=== PATIENT | female | born 1960 | race Two or more races ===

== ENCOUNTER 2016-03-21 11:02 | Observation (INO) | payer SELFPAY ==
[2016-03-21] MEDS ORDERED: ASPIRIN 81 MG TABLET, CHEWABLE PO ONE (11:11)
[2016-03-21 12:02] LABS: HEMATOCRIT 33.3 % (36.0-47.0); HEMOGLOBIN 10.4 g/dL (12.0-15.5); HGB HCT DIFFERENCE -2.1; MEAN CORPUSCULAR HEMOGLOBIN 23.3 pg (27.0-33.4); MEAN CORPUSCULAR HGB CONC 31.3 g/dL (32.0-36.0); MEAN CORPUSCULAR VOLUME 74 fl (80-97); RED BLOOD COUNT 4.47 10^6/uL (3.72-5.28); WHITE BLOOD COUNT 17.2 10^3/uL (4.0-10.5)
[2016-03-21] MEDS ORDERED: PANTOPRAZOLE SODIUM 40 MG VIAL IV ONE (12:18)
[2016-03-21] MEDS ORDERED: NORMAL SALINE 1000 ML 1,000 ML IV ONE (12:19)
[2016-03-21 12:20] LABS: ALANINE AMINOTRANSFERASE 19 U/L (9-52); ALBUMIN 4.1 g/dL (3.5-5.0); ALKALINE PHOSPHATASE 131 U/L (38-126); ANION GAP 14 (5-19); ASPARTATE AMINO TRANSFERASE 20 U/L (14-36); BILIRUBIN,TOTAL 0.8 mg/dL (0.2-1.3); BLOOD UREA NITROGEN 12 mg/dL (7-20); CALCIUM 9.1 mg/dL (8.4-10.2); CARBON DIOXIDE 27 mmol/L (22-30); CHLORIDE 98 mmol/L (98-107); CREATINE KINASE 46 U/L (30-135); CREATININE RESULT 0.55 mg/dL (0.52-1.25); GLUCOSE 182 mg/dL (75-110); POTASSIUM 4.2 mmol/L (3.6-5.0); SODIUM 138.7 mmol/L (137-145); TOTAL PROTEIN 7.3 g/dL (6.3-8.2)
[2016-03-21 12:22] LABS: BASOPHILS % (MANUAL) 0 % (0-2); EOSINOPHILS % (MANUAL) 0 % (0-6); LYMPHOCYTES % (MANUAL) 7 % (13-45); TOTAL CELLS COUNTED 100
[2016-03-21 12:23] LABS: ANISOCYTOSIS 2+; HYPOCHROMASIA 1+; MICROCYTOSIS 1+; OVALOCYTES SLIGHT; POIKILOCYTOSIS 1+; POLYCHROMASIA SLIGHT; TEAR DROP CELLS SLIGHT
--- NOTE | 2016-03-21 12:28 | ER Document Report ---
ED General - General Chief Complaint: Chest Pain Stated Complaint: CHEST PAIN Mode of Arrival: Medic Information source: Patient, Relative Notes: This is a 55-year-old Italian-speaking female whose history is assisted by the son who is an government property inspector. The patient does understand some Vincentian and is able to provide some history herself. The patient began feeling poorly yesterday described as very nauseated and weak. She did not vomit yesterday. However she did feel poorly all day and told her son she felt like she was going to . Today when the son checked on her he found that she was very weak and that she had been vomiting green-appearing emesis, 4 episodes since 0 800 this morning. Patient also states that earlier today she had upper abdominal and mid chest discomfort. She denies any diarrhea but she did have a small bowel movement this morning which she described as black and tarry. She has no known prior history of GI bleeding. She does take aspirin twice a day. At the time of my exam she is denying any chest pain. Right now she states that she is feeling a little bit better. TRAVEL OUTSIDE OF THE [place] IN LAST 30 DAYS: No - Related Data Allergies/Adverse Reactions: No Known Allergies Allergy (Verified 04/10/15 12:31) Past Medical History - General Information source: Patient, Relative - Social History Smoking Status: Never Smoker Frequency of alcohol use: None Drug Abuse: None Family History: Reviewed & Not Pertinent - Past Medical History Cardiac Medical History: Reports: Hx Congestive Heart Failure, Hx Coronary Artery Disease, Hx Heart Attack, Hx Hypercholesterolemia, Hx Hypertension Pulmonary Medical History: Reports: Hx Asthma Endocrine Medical History: Reports: Hx Diabetes Mellitus Type 2 Past Surgical History: Reports: Hx Cardiac Catheterization, Hx Section , Hx Cholecystectomy, Hx Herniorrhaphy - Immunizations Hx Diphtheria, Pertussis, Tetanus Vaccination: Yes Review of Systems - Review of Systems Notes: REVIEW OF SYSTEMS: CONSTITUTIONAL : Denies fever, chills, or sweats. Generalized weakness and malaise as per history of present illness EENT: Denies eye, ear, throat, or mouth pain or symptoms. Denies nasal or sinus congestion. CARDIOVASCULAR: Chest pain as per history of present illness RESPIRATORY: Denies shortness of breath, difficulty breathing, or wheezing. Mild cough and congestion for 2 days. GASTROINTESTINAL: As per history of present illness GENITOURINARY: Denies difficulty urinating, painful urination, burning, frequency, or blood in urine. MUSCULOSKELETAL: Denies neck or back pain or joint pain or swelling. SKIN: Denies rash or skin lesions. HEMATOLOGIC : Denies easy bruising or bleeding. LYMPHATIC: Denies swollen, enlarged glands. NEUROLOGICAL: Denies altered mental status or loss of consciousness. Patient does have a mild headache today PSYCHIATRIC: Anxiety ALL OTHER SYSTEMS REVIEWED AND NEGATIVE. Physical Exam - Vital signs Vitals: Pulse Ox 97 03/21/16 11:48 - Notes Notes: PHYSICAL EXAMINATION: GENERAL: Obese female who is alert and conversant but somewhat ill-appearing and uncomfortable. HEAD: Atraumatic, normocephalic. EYES: Pupils equal round and reactive to light, extraocular movements intact, sclera anicteric, conjunctiva are normal. ENT: nares patent, oropharynx clear without exudates. Moist mucous membranes. NECK: Normal range of motion, supple without lymphadenopathy LUNGS: Breath sounds clear to auscultation bilaterally and equal. No wheezes rales or rhonchi. HEART: Regular rate and rhythm without murmurs ABDOMEN: Soft, obese, mild epigastric tenderness to palpation without rebound guarding or rigidity, normoactive bowel sounds. No masses appreciated. EXTREMITIES: Normal range of motion, no pitting or edema. No cyanosis. NEUROLOGICAL: Cranial nerves grossly intact. Normal speech. Normal sensory and motor exam PSYCH: Normal mood, anxious affect SKIN: Warm, Dry, some pallor, normal turgor, no rashes or lesions noted. Course - Re-evaluation Re-evalutation: 03/21/16 12:30 Lab review demonstrates a leukocytosis. Given this finding along with the upper abdominal pain and bilious vomiting, I will obtain a CT of abdomen and pelvis. 03/21/16 15:[address] reviewed. Patient was reexamined. She denies any recurrent chest pain. She is having diffuse abdominal cramping and nausea and has had one episode of vomiting since her CAT scan. She is still somewhat ill-appearing and uncomfortable. I have ordered IM Phenergan and will discuss with the hospitalist for admission. I discussed this with the patient and her son and their questions were answered and they are agreeable with plan. - Vital Signs Vital signs: Temp Pulse Resp BP Pulse Ox 98.2 F 97 20 110/55 L 99 03/21/16 22:40 03/21/16 22:40 03/21/16 22:40 03/21/16 22:40 03/21/16 22:40 - Laboratory Result Diagrams: 03/21/16 11:37 03/21/16 11:37 Laboratory results interpreted by me: 03/21/16 03/21/16 11:37 11:37 WBC 17.2 H Hgb 10.4 L Hct 33.3 L MCV 74 L MCH 23.3 L MCHC 31.3 L RDW 19.0 H Seg Neuts % (Manual) 91 H Lymphocytes % (Manual) 7 L Monocytes % (Manual) 2 L Abs Neuts (Manual) 15.7 H Glucose 182 H Alkaline Phosphatase 131 H - Diagnostic Test Radiology reviewed: Reports reviewed - Chest x-ray negative, CT of abdomen and pelvis negative for acute process. Discharge - Discharge Clinical Impression: Chest pain Qualifiers: Chest pain type: unspecified Qualified Code(s): R07.9 - Chest pain, unspecified Vomiting Qualifiers: Vomiting type: unspecified Vomiting Intractability: intractable Nausea presence : with nausea Qualified Code(s): R11.2 - Nausea with vomiting, unspecified Leukocytosis Qualifiers: Leukocytosis type: unspecified Qualified Code(s): D72.829 - Elevated white blood cell count, unspecified Hyperglycemia due to type 2 diabetes mellitus Qualifiers: Diabetes mellitus meterman insulin use: unspecified meterman insulin use status Qualified Code(s): E11.65 - Type 2 diabetes mellitus with hyperglycemia Condition: Stable Disposition: ADMITTED INPATIENT Admitting Provider: Hospitalist - Dr. Mac Unit Admitted: Medical Floor
[2016-03-21 12:50] LABS: CREATINE KINASE MB < 0.22 ng/mL (<4.55); TROPONIN I < 0.012 ng/mL
--- NOTE | 2016-03-21 13:27 | EKG REPORT ---
SEVERITY:- BORDERLINE ECG - SINUS RHYTHM BORDERLINE T ABNORMALITIES, ANTERIOR LEADS : Confirmed by: Bartolo Washington MD 21-Mar-2016 13:27:09
[2016-03-21] MEDS ORDERED: ONDANSETRON HCL INJ/PF 4 MG/2 ML SDV IV ONE (13:31)
[2016-03-21 13:58] LABS: APPEARANCE,URINE CLEAR; BILIRUBIN,URINE NEGATIVE (NEGATIVE); GLUCOSE, URINE NEGATIVE (NEGATIVE); KETONES,URINE NEGATIVE (NEGATIVE); LEUKOCYTE ESTERASE,URINE NEGATIVE (NEGATIVE); NITRITE,URINE NEGATIVE (NEGATIVE); PROTEIN,URINE NEGATIVE (NEGATIVE); URINE SPECIFIC GRAVITY 1.014; UROBILINOGEN,URINE NEGATIVE mg/dL (<2.0)
[2016-03-21] MEDS ORDERED: PROMETHAZINE HCL INJ 25 MG/1 ML VIAL IM ONE (15:43)
[2016-03-21] MEDS ORDERED: ONDANSETRON HCL INJ/PF 4 MG/2 ML SDV IV PRN (16:27)
[2016-03-21] MEDS ORDERED: ACETAMINOPHEN 325 MG TABLET PO PRN (16:27)
[2016-03-21] MEDS ORDERED: RINGERS SOLUTION,LACTATED 1,000 ML IV PRN (16:27)
[2016-03-21] MEDS ORDERED: MAGNESIUM HYDROXIDE SUSP 30 ML UDCUP PO PRN (16:27)
[2016-03-21] MEDS ORDERED: IPRATROPIUM/ALBUTEROL 0.5-2.5 MG/3 ML AMPUL NEB PRN (16:27)
[2016-03-21] MEDS ORDERED: DEXTROSE 50%-WATER 25 GM/50 ML DISP.SYRIN IV PRN ×2 (16:53)
[2016-03-21] MEDS ORDERED: INSULIN LISPRO 100 UNIT/ML 3 ML VIAL SUBCUT PRN (16:53)
[2016-03-21] MEDS ORDERED: GLUCAGON,HUMAN RECOMB 1 MG INJ IM PRN (16:53)
[2016-03-21] MEDS ORDERED: DEXTROSE 40% GEL 15 GM TUBE PO PRN ×2 (16:53)
--- NOTE | 2016-03-21 16:55 | PDOC H&P ---
History of Present Illness Admission Date/PCP: 03/21/16 16:23 Patient complains of: Chest pain History of Present Illness: ROEL MANCIA is a 55 year old female who presents from home with sudden onset of epigastric pain radiating into the left chest starting yesterday with associated nausea and vomiting of green bile. Pain is described as sharp and burning, constant but waxes and wanes with no alleviating or exacerbating factors. There was associated diaphoresis, dizziness, palpitations, subjective fevers and generalized weakness at the onset. She's never had anything like this before. She reports sick contact with her daughter who had high fevers at home on Sunday. She has not traveled outside the country. She denies diarrhea or constipation, orthopnea, PND, swelling of her lower extremities, rapid weight gain or loss, unilateral weakness, numbness and tingling, difficulty swallowing, dysuria, rash or swollen glands. She had previous gastric banding but the balloon has since been removed over a year ago and she was suffering complications of chronic pain and discomfort. Evaluation in the emergency department is largely unrevealing with normal evaluation so far. We were asked to admit the patient for further cardiac evaluation and management. She denies prior cardiac history however did undergo what sounds like a heart catheter many years ago that was reportedly normal. She does not smoke or drink , she is obese, her lipid status is unclear and there is a strong family history of heart disease. Past Medical History Cardiac Medical History: Reports: Congestive Heart Failure, Coronary Artery Disease, Myocardial Infarction, Hyperlipidema, Hypertension Pulmonary Medical History: Reports: Asthma Endocrine Medical History: Reports: Diabetes Mellitus Type 2 Past Surgical History Past Surgical History: Reports: Cardiac Catheterization, Section, Cholecystectomy, Herniorrhaphy Social History Smoking Status: Never Smoker Frequency of Alcohol Use: None Drugs: None Hx Prescription Drug Abuse: No - Advance Directive Resuscitation Status: Full Code Family History Family History: CAD Parental Family History Reviewed: Yes Children Family History Reviewed: Yes Sibling(s) Family History Reviewed.: Yes Medication/Allergy Home Medications: Atorvastatin Calcium [Lipitor 40 mg Tablet] 80 mg PO QHS 10/29/13 Enalapril Maleate [Vasotec] 20 mg PO DAILY 10/29/13 Hydrochlorothiazide 25 mg PO DAILY 10/29/13 Metformin HCl [Glucophage] 1,000 mg PO BID 10/29/13 Metoprolol Tartrate [Lopressor 50 mg Tablet] 25 mg PO BID 10/29/13 Aspirin [Ecotrin 325 mg EC Tablet] 81 mg PO DAILY #30 tabec 10/30/13 Acetaminophen [Tylenol 325 mg Tablet] 650 mg PO Q4HP PRN tablet 04/14/15 Albuterol Sulfate [Proair HFA Inhalation Aerosol 8.5 gm MDI] 2 puff IH Q6 #1 [id number].[id number] 04/14/15 Albuterol Sulfate [Ventolin HFA MDI 18 GM] 1 - 2 puff IH Q4H PRN #1 mdi Benzonatate [Tessalon Perles 100 mg Capsule] 100 mg PO Q8 #30 capsule 04/14/15 Docusate Sodium [Colace 100 mg Capsule] 100 mg PO BID #60 capsule 04/14/15 Furosemide [Lasix 20 mg Tablet] 20 mg PO DAILY #30 tablet 04/14/15 Montelukast Sodium [Singulair 10 mg Tablet] 10 mg PO QHS #30 tablet 04/14/15 Prednisone [Deltasone 20 mg Tablet] 40 mg PO DAILY #10 tablet 04/14/15 Sennosides [Senna Laxative] 8.6 mg PO QHS #30 tablet 04/14/15 Ciprofloxacin HCl [Cipro 500 mg Tablet] 500 mg PO BID #20 tablet 12/19/15 Hydrocodone/Acetaminophen [[place] 5-325 mg Tablet] 1 - 2 tab PO ASDIR #15 tablet 12/19/15 Metronidazole [Flagyl 500 mg Tablet] 500 mg PO TID #30 tablet 12/19/15 Allergies/Adverse Reactions: No Known Allergies Allergy (Verified 04/10/15 12:31) Review of Systems Constitutional: PRESENT: chills, fever(s). ABSENT: headache(s), weight gain, weight loss Eyes: ABSENT: visual disturbances Ears: ABSENT: hearing changes Cardiovascular: PRESENT: chest pain, palpitations. ABSENT: dyspnea on exertion , edema, orthropnea Respiratory: ABSENT: cough, hemoptysis Gastrointestinal: PRESENT: abdominal pain - Epigastric and left upper quadrant, nausea, vomiting. ABSENT: constipation, diarrhea, hematemesis, hematochezia Genitourinary: ABSENT: dysuria, hematuria Musculoskeletal: ABSENT: joint swelling Integumentary: ABSENT: rash, wounds Neurological: PRESENT: dizziness. ABSENT: abnormal gait, abnormal speech, confusion, focal weakness, syncope Psychiatric: PRESENT: anxiety - Very concerned she is having a heart attack, homidical ideation, suicidal ideation. ABSENT: depression Endocrine: ABSENT: cold intolerance, heat intolerance, polydipsia, polyuria Hematologic/Lymphatic: ABSENT: easy bleeding, easy bruising Physical Exam Vital Signs: Temp Pulse Resp BP Pulse Ox 26 H 155/72 H 94 03/21/16 16:01 03/21/16 16:01 03/21/16 16:01 PHYSICAL EXAM GENERAL: NAD; well developed, well nourished; morbid obese; alert and oriented to person, place, time, situation; German-speaking HEENT: normocephalic, atraumatic; EOMI, PERRLA, no conjunctival injection, no scleral icterus; oral mucosa moist, normal dentition; neck supple, no rigidity or tenderness; no LAD, normal ROM; tonsils mildly enlarged and erythematous but no exudates, posterior oropharynx mildly erythematous. RESPIRATORY: no accessory muscle use, no increased WOB, good air entry bilaterally; no wheezes, rales, rhonchi; no inspiratory crackles CARDIO: no JVD; RRR; no systolic murmur; no tachycardia; no tenderness to palpation of the chest wall VASCULAR: no carotid bruit; no abdominal bruit; no pallor; 2+ radial, DP pulse ; normal capillary refill GI: soft; nondistended; normal bowel sounds; no hepato spleno megaly; no rebound, rigidity, guarding; tender over the epigastrium and left upper quadrant palpation, mild : normal external genitalia; rectal deferred NEURO: normal patella reflexes; normal sensation; normal motor function; no dysarthria; no nystagmus; tongue protrudes midline; MSK: 5/5 strength; normal ROM hips; ambulatory without assistance; no tenderness EXTREMITIES: no calf tender; no palpable cords in calf; no clubbing, cyanosis , pedal edema PSYCH: normal affect, normal mood SKIN: warm; moist; no petechiae; no telengectasias; no jaundice; no rash Results Laboratory Results: Labs reviewed initial troponins are negative 2, lipase is normal, glucose is elevated at 182 but the remainder of her electrolytes are normal; her CBC does show leukocytosis of 17,000 mild anemia with an H&H of 10 and 33 platelet count of 342 and 91% segs EKG Comments: EKG shows a normal sinus rhythm with an S1 and Q3 with flattened T-wave in lead 3, not dissimilar to prior EKGs Impressions: Chest X-Ray 03/21/16 11:11 IMPRESSION: Cardiomegaly stable. Note above. Abdomen/Pelvis CT 03/21/16 12:29 IMPRESSION: 1. No acute or suspicious abdominopelvic abnormality. No evidence of bowel obstruction. Sigmoid diverticulosis without evidence of active diverticulitis. Status: Image reviewed by me - Images reviewed by me, I agree with radiology. Assessment & Plan - Diagnosis (1) Atypical chest pain Is this a current diagnosis for this admission?: YesPlan: Unclear etiology but I highly suspect GI source. She has never undergone endoscopy and so has no prior history of peptic ulcer disease, gastritis, esophagitis however she had a great deal of difficulty after the gastric balloon was implanted for reduction surgery and weight loss requiring subsequent removal. Nevertheless she has a HEART score equal to 4 and assuming she is afforded in the morning we'll schedule a Cardiolite stress test further evaluate. His artery had 2 negative cardiac enzymes will check a third and monitor overnight on telemetry for any cardiac dysrhythmias. We'll check a lipid panel in the morning. Hold on aspirin at this time as there is no clear indication of acute cardiac ischemia and I have great concerns regarding possible GI source with a differential diagnosis including gastric ulcer disease. We'll start empiric PPI therapy twice a day and allow clear liquid diet tonight with as needed antiemetics and analgesics. (2) Leukocytosis Qualifiers: Leukocytosis type: unspecified Qualified Code(s): D72.829 - Elevated white blood cell count, unspecified Is this a current diagnosis for this admission?: YesPlan: Unclear etiology. 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 - Time Time Spent: 50 to 70 Minutes Medications reviewed and adjusted accordingly: Yes Anticipated discharge: Home Within: within 24 hours - Plan Summary Plan Summary: IV fluids, analgesics, antiemetics through the night. Cardiac evaluation as outlined above. Hopefully nothing more than a viral gastroenteritis and she could be safely discharged home tomorrow.
[2016-03-21] MEDS ORDERED: ENOXAPARIN SODIUM INJ 40 MG/0.4 ML DISP.SYRIN SUBCUT ONE (17:30)
[2016-03-21] MEDS ORDERED: INFLUENZA ADLT QUAD (36MOS+) 2016-17 VAC 0.5 ML SYR IM PRN (18:59)
[2016-03-21 20:32] LABS: CREATINE KINASE MB < 0.22 ng/mL (<4.55); TROPONIN I < 0.012 ng/mL
[2016-03-21] MEDS: PANTOPRAZOLE SODIUM 40 MG VIAL IV SCH (23:24)
[2016-03-21] MEDS: MORPHINE SULFATE 10 MG/ML INJ IV PRN (23:24)
[2016-03-22 02:26] LABS: CREATINE KINASE MB < 0.22 ng/mL (<4.55); TROPONIN I < 0.012 ng/mL
[2016-03-22] MEDS: MORPHINE SULFATE 10 MG/ML INJ IV PRN (06:50)
[2016-03-22 07:41] LABS: HEMATOCRIT 28.9 % (36.0-47.0); HEMOGLOBIN 9.3 g/dL (12.0-15.5); MEAN CORPUSCULAR HEMOGLOBIN 23.9 pg (27.0-33.4); MEAN CORPUSCULAR HGB CONC 32.3 g/dL (32.0-36.0); MEAN CORPUSCULAR VOLUME 74 fl (80-97); RED BLOOD COUNT 3.89 10^6/uL (3.72-5.28); RED CELL DISTRIBUTION WIDTH 19.7 % (11.5-14.0); WHITE BLOOD COUNT 17.3 10^3/uL (4.0-10.5)
[2016-03-22] MEDS ORDERED: ENOXAPARIN SODIUM INJ 40 MG/0.4 ML DISP.SYRIN SUBCUT SCH (08:00)
[2016-03-22 08:06] LABS: CHOLESTEROL 118.33 mg/dL (0-200); CREATINE KINASE 152 U/L (30-135); Direct HDL 46 mg/dL (>40); MAGNESIUM 1.6 mg/dL (1.6-2.3); TRIGLYCERIDES 66 mg/dL (<150)
[2016-03-22 08:17] LABS: DIRECT LDL 58 mg/dL (<100)
[2016-03-22 08:19] LABS: CREATINE KINASE MB < 0.22 ng/mL (<4.55); TROPONIN I < 0.012 ng/mL
[2016-03-22] MEDS: PANTOPRAZOLE SODIUM 40 MG VIAL IV SCH (09:56)
[2016-03-22] MEDS ORDERED: BENZOCAINE/MENTHOL SORE THROAT LOZENGE BUCCAL PRN (11:23)
[2016-03-22] MEDS ORDERED: MAGNESIUM SULFATE/D5W 100 ML IV SCH (11:30)
[2016-03-22] MEDS ORDERED: REGADENOSON INJ 0.4 MG/5 ML DISP.SYRIN IV ONE (13:16)
[2016-03-22] MEDS ORDERED: HYDROMORPHONE HCL INJ/PF 2 MG/ML AMPULE IV PRN (14:27)
[2016-03-22] MEDS ORDERED: HYDROMORPHONE HCL INJ/PF 2 MG/ML AMPULE IV ONE (14:28)
[2016-03-22] MEDS ORDERED: MAGNESIUM SULFATE/D5W 1 GM/100 ML RTUPB IV ONE (15:15)
--- NOTE | 2016-03-22 15:49 | DRAGON STRESS TEST REPORT ---
INTRAVENOUS LEXISCAN CARDIOLITE STRESS TEST USING SINGLE PHOTON EMMISION COMPUTERIZED TOMOGRAPHIC. DATE OF PROCEDURE: March 22, 2016 INDICATION : Chest pain CARDIAC RISK FACTORS: Diabetes RESTING EKG: Sinus rhythm, no Baseline significant ST segment changes noted STRESS EKG: No significant changes noted with LexiScan bolus REASON FOR TERMINATION: Protocol. PROCEDURE REPORT: Baseline heart rate 96 beats per minute with blood pressure of 113/61. Patient had no significant complaints. Heart rate at 2 minutes post bolus 114 with a blood pressure of 121/57. 3 minutes post bolus heart rate 113 with blood pressure of 105/59. No significant EKG changes were noted. Patient had no significant complaints during the procedure or postprocedure. CONCLUSIONS: Normal EKG and hemodynamic response to IV LexiScan. NUCLEAR DATA: At rest the patient was given 15.96 millicuries of technetium 99 sestamibi injected intravenously. As per protocol rest gated SPECT images were obtained. Subsequently the patient was given intravenous LexiScan at a dose of 0.4 mg in 5 mL intravenously, followed by flush with normal saline. Subsequently the stress dose of 46.3 millicuries of technetium 99 sestamibi was injected intravenously. As per protocol stress gated images were obtained. NUCLEAR INTERPRETATION: Both raw and processed data were used for interpretation. Visual, qualitative, computer-generated quantitative data was used. There was good myocardial uptake of technetium compound. Motion artifact and soft tissue attenuations were noted. Increased visceral uptake was noted. No definitive areas of transient perfusion defect noted. No definitive areas of fixed perfusion defect or scars noted. EKG gated imaging showed LV EF at 58 %, rest and stress gated EF similar visually. T. I D. ratio was 0.93. Lung heart ratio noted to be within normal limits 0.35. No significant extracardiac and abnormal radiotracer activities were noted. RV free wall uptake was noted to be mildly increased. IMPRESSION: Also refer to comments under nuclear interpretation. Also test results needs to be interpreted in the context of pretest probability. 1. There is no definitive scintigraphic evidence of LexiScan induced myocardial ischemia. 2. There is no definitive scintigraphic evidence of myocardial infarction/scar. 3. EKG gated imaging shows left ejection fraction of approximately 58 %. 4. Clinical correlation requested as occasionally single vessel disease or balanced ischemia could be missed. In approximately 10% of the cases Lexiscan may not cause adequate vasodilatory stress. RECOMMENDATIONS: Aggressive risk factor modification, medical therapy. Clinical correlation with echocardiogram derived ejection fraction. Inability to exercise by itself can lead to increased cardiovascular event risks. Consider cardiology consultation if clinically indicated. I AM AVAILABLE FOR CARDIOLOGY CONSULTATION AND FOLLOWUP IF REQUESTED BY PMD Susan Mason M.D., [facility] [employer] Operator painting manager, Board certified in cardiovascular diseases, Nuclear cardiology, Echocardiography Cardiac CT and cardiac MRI Ph. [phone] [facility]
[2016-03-22] MEDS ORDERED: CEFTRIAXONE 2 GM/D5W RTU 2 GM/50 ML RTUPB IV SCH (16:00)
[2016-03-22] MEDS ORDERED: DEXAMETHASONE SOD PHOS INJ 10 MG/1 ML VIAL IV ONE (16:00)
[2016-03-22 17:42] VITALS: BP 110/55
--- NOTE | 2016-03-22 17:47 | PDOC DISCHARGE SUMMARY ---
General - Admit/Disc Date/PCP Admission Date/Primary Care Provider: 03/21/16 16:28 Discharge Date: 03/22/16 - Discharge Diagnosis (1) Atypical chest pain Is this a current diagnosis for this admission?: YesSummary: Admitted and monitored overnight on telemetry without evidence of cardiac dysrhythmia, serial cardiac enzymes were negative, Cardiolite stress test this morning was negative for any ischemic changes. This seems to be of GI origin and has now resolved according to the patient. (2) Streptococcal pharyngitis Is this a current diagnosis for this admission?: YesSummary: Likely the source of the vast majority of her ills. She was given a dose of Rocephin 2 g, Decadron 20 mg IV and we'll continue Amoxil 3 times a day for 10 days at home with follow up at the urgent care for choices she has no primary care provider. She is to return to the emergency department for any worsening of her condition including inability to control her secretions, drooling, high fevers greater than 102, worsening pain, lethargy or confusion. (3) Leukocytosis Is this a current diagnosis for this admission?: YesSummary: Likely secondary to the above. (4) Diabetes Is this a current diagnosis for this admission?: YesSummary: Hemoglobin A1c is 7.3. Given her obesity started her on metformin and she is to follow-up with primary care provider of her choice, currently seen at the [facility] in [place]. - Additional Information Resuscitation Status: Full Code Discharge Diet: As Tolerated Discharge Activity: Activity As Tolerated Home Medications: Acetaminophen [Tylenol 325 mg Tablet] 650 mg PO Q4HP PRN tablet 03/22/16 Amoxicillin Trihydrate [Amoxil 250 mg/5 ml Susp] 500 mg PO TID 10 Days 03/22/16 Atorvastatin Calcium [Lipitor 80 mg Tablet] 80 mg PO QHS 03/22/16 Benzocaine/Menthol [Chloraseptic Sore Throat Lozenge] 1 each BUCCAL Q2HP PRN lozenge 03/22/16 Hydrochlorothiazide [Hydrodiuril 25 mg Tablet] 25 mg PO DAILY 03/22/16 Linaclotide [Linzess] 290 mcg PO QAM 03/22/16 Metformin HCl 500 mg PO BID #60 tablet 03/22/16 Metformin HCl [Glucophage] 1,000 mg PO BIDACLS 03/22/16 Metoprolol Tartrate [Lopressor 25 mg Tablet] 25 mg PO Q12 03/22/16 Montelukast Sodium [Singulair 10 mg Tablet] 10 mg PO QHS 03/22/16 Morphine Sulfate [Roxanol] 10 mg PO Q4HP PRN #20 ml 03/22/16 History of Present Illness Patient complains of: Sore throat, epigastric pain, chest pain History of Present Illness: ROEL MANCIA is a 55 year old female who presents from home with sudden onset of epigastric pain radiating into the left chest starting yesterday with associated nausea and vomiting of green bile. Pain is described as sharp and burning, constant but waxes and wanes with no alleviating or exacerbating factors. There was associated diaphoresis, dizziness, palpitations, subjective fevers and generalized weakness at the onset. She's never had anything like this before. She reports sick contact with her daughter who had high fevers at home on Sunday. She has not traveled outside the country. She denies diarrhea or constipation, orthopnea, PND, swelling of her lower extremities, rapid weight gain or loss, unilateral weakness, numbness and tingling, difficulty swallowing, dysuria, rash or swollen glands. She had previous gastric banding but the balloon has since been removed over a year ago and she was suffering complications of chronic pain and discomfort. Evaluation in the emergency department is largely unrevealing with normal evaluation so far. We were asked to admit the patient for further cardiac evaluation and management. She denies prior cardiac history however did undergo what sounds like a heart catheter many years ago that was reportedly normal. She does not smoke or drink , she is obese, her lipid status is unclear and there is a strong family history of heart disease. Hospital Course Hospital Course: She was admitted to the hospital and ruled out for acute coronary ischemia with negative cardiac enzymes and a negative Cardiolite stress test. Her chest pain and epigastric pain resolved overnight with simple IV fluids. By morning she was complaining of intense swollen sore throat and odynophagia and on exam had worsening peritonsillar erythema with now developing tonsillar exudates. Rapid strep screen was positive confirming a diagnosis of strep pharyngitis. She was given a dose of Rocephin and Decadron and discharged home on oral amoxicillin with instructions to follow-up with primary care provider of her choice within one week or return to the emergency department for any worsening of her condition immediately. Case was discussed with her directly using Cl, all questions were asked and answered to her satisfaction, she is anxious for discharge home and expresses no concerns about doing so. She understands and is in agreement with the treatment plan as outlined above. Physical Exam Vital Signs: Temp Pulse Resp BP Pulse Ox 100.0 F 97 16 111/55 L 98 03/22/16 16:06 03/22/16 16:06 03/22/16 16:06 03/22/16 16:06 03/22/16 16:06 Intake & Output 03/21/16 03/22/16 03/23/16 06:59 06:59 06:59 Intake Total 950 Balance 950 Weight 119.9 kg PHYSICAL EXAM GENERAL: NAD; well developed, well nourished; morbid obese; alert and oriented to person, place, time, situation; Slovenian-speaking HEENT: normocephalic, atraumatic; EOMI, PERRLA, no conjunctival injection, no scleral icterus; oral mucosa moist,; neck supple, no rigidity but strap muscle tenderness under the angle of the jaw bilaterally with mild, tender, mobile LAD in that same area. Normal ROM; tonsils mildly enlarged and erythematous and today with exudates right greater than left, posterior oropharynx worsened erythema. RESPIRATORY: no accessory muscle use, no increased WOB, good air entry bilaterally; no wheezes, rales, rhonchi; no inspiratory crackles CARDIO: no JVD; RRR; no systolic murmur; no tachycardia; no tenderness to palpation of the chest wall VASCULAR: no carotid bruit; no abdominal bruit; no pallor; 2+ radial, DP pulse ; normal capillary refill GI: soft; nondistended; normal bowel sounds; no hepato spleno megaly; no rebound, rigidity, guarding; no longer tender over the epigastrium and left upper quadrant palpation EXTREMITIES: no calf tender; no palpable cords in calf; no clubbing, cyanosis , pedal edema PSYCH: normal affect, normal mood SKIN: warm; moist; no petechiae; no telengectasias; no jaundice; no rash Results Laboratory Results: 03/22/16 07:16 03/22/16 03/22/16 03/22/16 07:16 07:16 07:16 WBC 17.3 H RBC 3.89 Hgb 9.3 L Hct 28.9 L MCV 74 L MCH 23.9 L MCHC 32.3 RDW 19.7 H Plt Count 307 Magnesium 1.6 Triglycerides 66 Cholesterol 118.33 LDL Cholesterol Direct 58 VLDL Cholesterol 13.0 HDL Cholesterol 46 TSH 1.41 03/21/16 03/21/16 03/22/16 19:35 19:35 01:25 Creatine Kinase 78 115 CK-MB (CK-2) < 0.22 Troponin I < 0.012 03/22/16 03/22/16 03/22/16 01:25 07:16 07:16 Creatine Kinase 152 H CK-MB (CK-2) < 0.22 < 0.22 Troponin I < 0.012 < 0.012 Labs reviewed, summarized in history of present illness. Impressions: Chest X-Ray 03/21/16 11:11 IMPRESSION: Cardiomegaly stable. Note above. Abdomen/Pelvis CT 03/21/16 12:29 IMPRESSION: 1. No acute or suspicious abdominopelvic abnormality. No evidence of bowel obstruction. Sigmoid diverticulosis without evidence of active diverticulitis. Status: Imported from PACS - Reports reviewed Qualifiers PATEINT BEING DISCHARGED WITH ANY OF THE FOLLOWING DIAGNOSIS?: No VTE patient discharged on overlapping Therapy?: Yes Plan Discharge Plan: Discharged home on continued oral antibiotics and analgesics with close outpatient follow-up with provider of her choice and return to the emergency department for any worsening of her condition. Time Spent: Greater than 30 Minutes
== END 2016-03-22 18:25 | disposition home or self-care (01) ==
LOC: ER 11:02 → EH 16:23 → UNDOADMIN 16:23 → EH 16:28 → INTOOBSV 16:28 → EH 17:07 → 5 22:42
PROVIDERS: ADMIT Internal Medicine; ATTEND Internal Medicine
DX: J02.0 Streptococcal pharyngitis (principal); R07.89 Other chest pain; D72.829 Elevated white blood cell count, unspecified; E11.9 Type 2 diabetes mellitus without complications; E66.9 Obesity, unspecified; Z68.42 Body mass index [BMI] 45.0-49.9, adult; Z79.899 Other long term (current) drug therapy; Z79.84 Long term (current) use of oral hypoglycemic drugs; R10.13 Epigastric pain; R11.2 Nausea with vomiting, unspecified; I51.7 Cardiomegaly; K57.30 Diverticulosis of large intestine without perforation or abscess without bleeding; I50.9 Heart failure, unspecified; I25.10 Atherosclerotic heart disease of native coronary artery without angina pectoris; I25.2 Old myocardial infarction; E78.5 Hyperlipidemia, unspecified; I10 Essential (primary) hypertension; J45.909 Unspecified asthma, uncomplicated; Z98.61 Coronary angioplasty status; Z79.82 Long term (current) use of aspirin; Z79.51 Long term (current) use of inhaled steroids
CPT/HCPCS: 93005; 99285; 96361; 96374; 96375; 36415 ×2; 82553 ×2; 87880; 82962 ×2; 82550 ×2; 83690; 83735; 84443; 85025; 85027; 82272; 80053; 81001; 84484 ×2; 83036; 85379; 80061; 93017; 71010; 78452; 74177; 90686; 93010; 90471; G0378 ×3; A9500; J2785; J1815; J2270 ×2; J1650 ×2; J1170; J3475; S0164 ×2; J2550; J2405; J7030; J7120; J1100; J0696; Q9969

== ENCOUNTER 2017-02-23 19:30 | Inpatient (IN) | payer SELFPAY ==
--- NOTE | 2017-02-23 20:15 | RADIOLOGY REPORT (SQ) ---
EXAM DESCRIPTION: CHEST PA/LAT COMPLETED DATE/TIME: 02/23/2017 8:03 pm REASON FOR STUDY: cp cough COMPARISON: 04/14/2015 NUMBER OF VIEWS: Two views. TECHNIQUE: Frontal and lateral radiographic views of the chest acquired. LIMITATIONS: None. FINDINGS: LUNGS AND PLEURA: No opacities, masses or pneumothorax. No pleural effusion. MEDIASTINUM AND HILAR STRUCTURES: No masses or contour abnormality. HEART AND VASCULAR STRUCTURES: Cardiac enlargement. Vascular congestion. BONES: No acute findings. HARDWARE: None in the chest. OTHER: No other significant finding. IMPRESSION: CARDIAC ENLARGEMENT. VASCULAR CONGESTION. TECHNICAL DOCUMENTATION: JOB ID: [id number] [employer]- All Rights Reserved
[2017-02-23] MEDS ORDERED: PREDNISONE 20 MG TABLET PO ONE (20:52)
[2017-02-23] MEDS ORDERED: IPRATROPIUM/ALBUTEROL 0.5-2.5 MG/3 ML AMPUL NEB ONE (20:52)
[2017-02-23] MEDS ORDERED: AZITHROMYCIN 250 MG TABLET PO ONE (20:57)
--- NOTE | 2017-02-23 20:57 | ER Document Report ---
ED Medical Screen (RME) - General Chief Complaint: Shortness Of Breath Stated Complaint: BREATHING DIFFICULTY Time Seen by Provider: 02/23/17 20:43 Notes: 56-year-old female past medical history asthma here with complaints of progressively worsening wheezing cough shortness of breath and chest tightness ongoing for the past 2 months. She states that the chest tightness is worse with coughing but not with exertion. She's tried albuterol inhaler with good relief. EXAM Moderately tachycardic, regular rhythm Diminished aeration however no appreciable wheezes Mild tachypnea TRAVEL OUTSIDE OF THE [place] IN LAST 30 DAYS: No - Related Data Allergies/Adverse Reactions: No Known Allergies Allergy (Verified 02/23/17 19:33) Past Medical History - Social History Chew tobacco use (# tins/day): No Frequency of alcohol use: None Drug Abuse: None - Past Medical History Cardiac Medical History: Reports: Hx Congestive Heart Failure, Hx Coronary Artery Disease, Hx Heart Attack, Hx Hypercholesterolemia, Hx Hypertension Pulmonary Medical History: Reports: Hx Asthma Endocrine Medical History: Reports: Hx Diabetes Mellitus Type 2 Renal/ Medical History: Denies: Hx Peritoneal Dialysis Psychiatric Medical History: Reports: Hx Depression Past Surgical History: Reports: Hx Cardiac Catheterization, Hx Section , Hx Cholecystectomy, Hx Herniorrhaphy - Immunizations Hx Diphtheria, Pertussis, Tetanus Vaccination: Yes Physical Exam - Vital signs Vitals: Temp Pulse BP Pulse Ox 98.5 F 117 H 156/89 H 91 L 02/23/17 20:29 02/23/17 20:29 02/23/17 20:29 02/23/17 20:29 Course - Vital Signs Vital signs: Temp Pulse Resp BP Pulse Ox 98.5 F 117 H 156/89 H 91 L 02/23/17 20:29 02/23/17 20:29 02/23/17 20:29 02/23/17 20:29
[2017-02-23 21:27] LABS: ABSOLUTE EOSINOPHILS # (AUTO) 0.2 10^3/uL (0.0-0.6); ABSOLUTE LYMPHOCYTES (AUTO) 1.8 10^3/uL (0.5-4.7); ABSOLUTE MONOCYTES (AUTO) 0.6 10^3/uL (0.1-1.4); ABSOLUTE NEUT (AUTO) 13.5 10^3/uL (1.7-8.2); BASOPHILS % (AUTO) 0.3 % (0-2); HEMOGLOBIN 11.2 g/dL (12.0-15.5); LYMPHOCYTES % (AUTO) 11.3 % (13-45); MEAN CORPUSCULAR HEMOGLOBIN 22.3 pg (27.0-33.4); MEAN CORPUSCULAR HGB CONC 30.3 g/dL (32.0-36.0); MEAN CORPUSCULAR VOLUME 74 fl (80-97); MONOCYTES % (AUTO) 3.6 % (3-13); PLATELET COUNT 492 10^3/uL (150-450); RED BLOOD COUNT 5.03 10^6/uL (3.72-5.28); RED CELL DISTRIBUTION WIDTH 18.9 % (11.5-14.0); SEGMENTED NEUTROPHILS % (AUTO) 83.8 % (42-78); TOTAL CELLS COUNTED % (AUTO) 100 %; WHITE BLOOD COUNT 16.1 10^3/uL (4.0-10.5)
[2017-02-23 21:45] LABS: ANION GAP 10 (5-19); BLOOD UREA NITROGEN 10 mg/dL (7-20); CALCIUM 9.7 mg/dL (8.4-10.2); CARBON DIOXIDE 30 mmol/L (22-30); CHLORIDE 98 mmol/L (98-107); GLUCOSE 353 mg/dL (75-110); MAGNESIUM 1.5 mg/dL (1.6-2.3); POTASSIUM 4.7 mmol/L (3.6-5.0); SODIUM 138.4 mmol/L (137-145)
[2017-02-23] MEDS ORDERED: FUROSEMIDE INJ/PF 40 MG/4 ML SDV IV ONE (22:30)
--- NOTE | 2017-02-23 22:32 | ER Document Report ---
ED General - General Chief Complaint: Shortness Of Breath Stated Complaint: BREATHING DIFFICULTY Time Seen by Provider: 02/23/17 20:43 Notes: Patient is a 56-year-old female comes in with complaint of difficulty breathing. She does have a history of asthma. Has been short of breath for last couple days. Family is at bedside and said they would like to help with translating. Therefore used the family for translating as the patient's [place]ian is very limited. Patient has a history of asthma. She has been using her inhaler. She says sometimes it does help some but she still feeling some shortness of breath. No fevers. No infections. She denies history of IA but describes what sounds to be a heart catheterization she has had in the past. She denies having any stents. She denies history of fluid on her lungs. She says her shortness of breath is worse with exertion. She did have recent nuclear stress test in August according to records which was negative. She has had some left-sided chest pain and she does have some cramping in her upper abdomen whenever she starts breathing hard. No other complaints at this time. TRAVEL OUTSIDE OF THE [place] IN LAST 30 DAYS: No - Related Data Allergies/Adverse Reactions: No Known Allergies Allergy (Verified 02/23/17 19:33) Past Medical History - Social History Smoking Status: Never Smoker Chew tobacco use (# tins/day): No Frequency of alcohol use: None Drug Abuse: None Family History: Reviewed & Not Pertinent Patient has suicidal ideation: No Patient has homicidal ideation: No - Past Medical History Cardiac Medical History: Reports: Hx Congestive Heart Failure, Hx Coronary Artery Disease, Hx Heart Attack, Hx Hypercholesterolemia, Hx Hypertension Pulmonary Medical History: Reports: Hx Asthma Endocrine Medical History: Reports: Hx Diabetes Mellitus Type 2 Renal/ Medical History: Denies: Hx Peritoneal Dialysis Psychiatric Medical History: Reports: Hx Depression Past Surgical History: Reports: Hx Cardiac Catheterization, Hx Section , Hx Cholecystectomy, Hx Herniorrhaphy - Immunizations Hx Diphtheria, Pertussis, Tetanus Vaccination: Yes Review of Systems - Review of Systems Notes: My Normal Review Basic REVIEW OF SYSTEMS: CONSTITUTIONAL : Denies fever, chills, or sweats. Denies recent illness. EENT: Denies eye, ear, throat, or mouth pain or symptoms. Denies nasal or sinus congestion. CARDIOVASCULAR: Denies chest pain. RESPIRATORY: Difficulty breathing. GASTROINTESTINAL: Denies abdominal pain. Denies nausea, vomiting, or diarrhea. Denies constipation. Last BM: MUSCULOSKELETAL: Denies neck or back pain or joint pain or swelling. SKIN: Denies rash or skin lesions. NEUROLOGICAL: Denies altered mental status or loss of consciousness. Denies headache. Denies weakness or paralysis or loss of use of either side. Denies problems with gait or speech. Denies sensory or motor loss. ALL OTHER SYSTEMS REVIEWED AND NEGATIVE. Physical Exam - Vital signs Vitals: Temp Pulse BP Pulse Ox 98.5 F 117 H 156/89 H 91 L 02/23/17 20:29 02/23/17 20:29 02/23/17 20:29 02/23/17 20:29 - Notes Notes: General Appearance: Well nourished, alert, cooperative, no acute distress, no obvious discomfort. Vitals: reviewed, See vital signs table. Head: no swelling or tenderness to the head Eyes: PERRL, EOMI, Conjuctiva clear Mouth: No decreasd moisture Throat: No tonsillar inflammation, No airway obstruction, No lymphadenopathy Neck: Supple, no neck tenderness, No thyromegaly Lungs: No wheezing, basilar rales, No rhonci, No accessory muscle use, good air exchange bilaterally. Heart: Normal rate, Regular rythm, No murmur, no rub Abdomen: Normal BS, soft, No rigidity, No abdominal tenderness, No guarding, no rebound, no abdominal masses, no organomegaly Extremities: strength 5/5 in all extremities, good pulses in all extremities, no swelling or tenderness in the extremities, 1+ bilateral lower extremity edema. Skin: warm, dry, appropriate color, no rash Neuro: speech clear, oriented x 3, normal affect, responds appropriately to questions. Course - Re-evaluation Re-evalutation: 02/24/17 01:04 Patient some improved but she still some rales in her bases and still little tachypneic. Oxygen saturation is 93-94% while at rest on room air. Her heart rate is still around 110. She says her chest pain has resolved. I suspect that she most likely has undiagnosed pulmonary hypertension. BNP is negative. Chest x-ray shows significant fluid. I have given her Lasix which has helped her symptoms some. I spoke with hospitalist, Dr. Kelly, who agrees to come evaluate the patient for consideration for admission. Dictation of this chart was performed using voice recognition software; therefore, there may be some unintended grammatical errors. - Vital Signs Vital signs: Temp Pulse Resp BP Pulse Ox 98.5 F 117 H 21 H 144/85 H 93 02/23/17 20:29 02/23/17 20:29 02/24/17 02:00 02/24/17 00:02 02/24/17 02:00 - Laboratory Result Diagrams: 02/23/17 21:00 02/23/17 21:00 Laboratory results interpreted by me: 02/23/17 02/23/17 21:00 21:00 WBC 16.1 H Hgb 11.2 L MCV 74 L MCH 22.3 L MCHC 30.3 L RDW 18.9 H Plt Count 492 H Seg Neutrophils % 83.8 H Lymphocytes % 11.3 L Absolute Neutrophils 13.5 H Glucose 353 H Magnesium 1.5 L - EKG Interpretation by Me Additional EKG results interpreted by me: 02/23/17 22:32 EKG is reviewed and interpreted by me. EKG shows sinus tachycardia with rate of [address] segment elevation or depression. No ischemic T-wave inversions. FL interval, QRS duration, QTc intervals are within normal range. Old EKG for comparison is from March 21, 2016. Discharge - Discharge Clinical Impression: Pulmonary vascular congestion Condition: Stable Disposition: ADMITTED OBSERVATION Admitting Provider: Hospitalist Unit Admitted: Telemetry
[2017-02-23 23:15] LABS: CREATINE KINASE MB < 0.22 ng/mL (<4.55); TROPONIN I < 0.012 ng/mL
[2017-02-23] MEDS: MAGNESIUM SULFATE/D5W 1 GM/100 ML RTUPB IV SCH ×2 (23:15→23:50)
[2017-02-24] MEDS ORDERED: MAGNESIUM SULFATE/D5W 100 ML IV SCH (01:45)
[2017-02-24] MEDS ORDERED: DEXTROSE 40% GEL 15 GM TUBE PO PRN ×2 (02:16)
[2017-02-24] MEDS ORDERED: GLUCAGON,HUMAN RECOMB 1 MG INJ IM PRN (02:16)
[2017-02-24] MEDS ORDERED: DEXTROSE 50%-WATER 25 GM/50 ML DISP.SYRIN IV PRN ×2 (02:16)
[2017-02-24] MEDS ORDERED: NITROGLYCERIN 2% OINTMENT 1 GM PACKET TP SCH (03:00)
[2017-02-24 03:01] LABS: CREATINE KINASE MB < 0.22 ng/mL (<4.55); TROPONIN I < 0.012 ng/mL
--- NOTE | 2017-02-24 03:55 | PDOC H&P ---
History of Present Illness Admission Date/PCP: DIANNA NUR MD History of Present Illness: ROEL MANCIA is a 56 year old female with past medical history of asthma, diabetes mellitus, hypertension,And morbid obesity who presents to the emergency department with complaints of shortness of breath. Patient reports that she has been short of breath for several months now that but this has been worsening over the past several days. Patient reports that she drinks between 8 -10 and sometimes even 12/2 L bottles of water daily. She also reports that despite being prescribed enalapril Lasix and hydrochlorothiazide she does not take these medications, but she does take her Metformin and metoprolol. She only intermittently takes her Singulair. Patient reports she was placed on prednisone about 2 weeks ago by her primary care physician. Patient does note some lower extremity swelling and some abdominal swelling as well. Patient is found to be grossly volume overloaded in the emergency department and referred to the hospital service for acute congestive heart failure. Past Medical History Cardiac Medical History: Reports: Congestive Heart Failure, Coronary Artery Disease, Myocardial Infarction, Hyperlipidema, Hypertension Pulmonary Medical History: Reports: Asthma Endocrine Medical History: Reports: Diabetes Mellitus Type 2, Obesity Psychiatric Medical History: Reports: Depression Past Surgical History Past Surgical History: Reports: Cardiac Catheterization, Section, Cholecystectomy, Herniorrhaphy Social History Smoking Status: Never Smoker Frequency of Alcohol Use: None Hx Recreational Drug Use: No Drugs: None Hx Prescription Drug Abuse: No - Advance Directive Resuscitation Status: Full Code Surrogate healthcare decision maker:: DaughterNina Family History Family History: DM, Hypertension, Thyroid Disfunction, Other - Crohn's disease Parental Family History Reviewed: Yes Children Family History Reviewed: Yes Sibling(s) Family History Reviewed.: Yes Medication/Allergy Home Medications: Acetaminophen [Tylenol 325 mg Tablet] 650 mg PO Q4HP PRN tablet 03/22/16 Amoxicillin Trihydrate [Amoxil 250 mg/5 ml Susp] 500 mg PO TID 10 Days bottle 03/22/16 Atorvastatin Calcium [Lipitor 80 mg Tablet] 80 mg PO QHS 03/22/16 Benzocaine/Menthol [Chloraseptic Sore Throat Lozenge] 1 each BUCCAL Q2HP PRN lozenge 03/22/16 Hydrochlorothiazide [Hydrodiuril 25 mg Tablet] 25 mg PO DAILY 03/22/16 Linaclotide [Linzess] 290 mcg PO QAM 03/22/16 Metformin HCl 500 mg PO BID #60 tablet 03/22/16 Metformin HCl [Glucophage] 1,000 mg PO BIDACLS 03/22/16 Metoprolol Tartrate [Lopressor 25 mg Tablet] 25 mg PO Q12 03/22/16 Montelukast Sodium [Singulair 10 mg Tablet] 10 mg PO QHS 03/22/16 Morphine Sulfate [Roxanol] 10 mg PO Q4HP PRN #20 ml 03/22/16 Allergies/Adverse Reactions: No Known Allergies Allergy (Verified 02/23/17 19:33) Review of Systems Constitutional: ABSENT: chills, fever(s), headache(s), weight gain, weight loss Eyes: ABSENT: visual disturbances Ears: ABSENT: hearing changes Cardiovascular: PRESENT: chest pain, dyspnea on exertion, edema, orthropnea. ABSENT: palpitations Respiratory: PRESENT: cough, dyspnea, sputum - Clear. ABSENT: hemoptysis Gastrointestinal: PRESENT: nausea. ABSENT: abdominal pain, constipation, diarrhea, hematemesis, hematochezia, melena, vomiting Genitourinary: ABSENT: dysuria, hematuria Musculoskeletal: ABSENT: joint swelling Integumentary: ABSENT: rash, wounds Neurological: ABSENT: abnormal gait, abnormal speech, confusion, dizziness, focal weakness, syncope Psychiatric: ABSENT: anxiety, depression, homidical ideation, suicidal ideation Endocrine: ABSENT: cold intolerance, heat intolerance, polydipsia, polyuria Hematologic/Lymphatic: ABSENT: easy bleeding, easy bruising Allergic/Immunologic: PRESENT: seasonal rhinorrhea Physical Exam Vital Signs: Temp Pulse Resp BP Pulse Ox 98.5 F 117 H 25 H 144/85 H 93 02/23/17 20:29 02/23/17 20:29 02/24/17 01:00 02/24/17 00:02 02/24/17 01:00 Intake & Output 02/22/17 02/23/17 02/24/17 06:59 06:59 06:59 Weight 126.5 kg General appearance: PRESENT: mild distress, morbidly obese, well-developed, well -nourished Head exam: PRESENT: atraumatic, normocephalic Eye exam: PRESENT: conjunctiva pink, EOMI, PERRLA. ABSENT: scleral icterus Ear exam: PRESENT: normal external ear exam Mouth exam: PRESENT: moist, tongue midline Neck exam: ABSENT: JVD, lymphadenopathy, thyromegaly, tracheal deviation Respiratory exam: PRESENT: rales, symmetrical, tachypnea, unlabored. ABSENT: accessory muscle use, rhonchi, wheezes Cardiovascular exam: PRESENT: RRR, +S1, +S2. ABSENT: diastolic murmur, rubs, systolic murmur Pulses: PRESENT: normal dorsalis pedis pul Vascular exam: PRESENT: normal capillary refill GI/Abdominal exam: PRESENT: normal bowel sounds, soft. ABSENT: distended, guarding, mass, organolmegaly, rebound, tenderness Rectal exam: PRESENT: deferred Extremities exam: PRESENT: full ROM, +1 edema. ABSENT: calf tenderness, clubbing Neurological exam: PRESENT: alert, awake, oriented to person, oriented to place , oriented to time, oriented to situation, CN II-XII grossly intact. ABSENT: motor sensory deficit Psychiatric exam: PRESENT: appropriate affect, normal mood. ABSENT: homicidal ideation, suicidal ideation Skin exam: PRESENT: dry, intact, warm. ABSENT: cyanosis, rash Results Laboratory Results: 02/23/17 21:00 02/23/17 21:00 02/23/17 02/23/17 21:00 21:00 WBC 16.1 H RBC 5.03 Hgb 11.2 L Hct 37.0 MCV 74 L MCH 22.3 L MCHC 30.3 L RDW 18.9 H Plt Count 492 H Seg Neutrophils % 83.8 H Lymphocytes % 11.3 L Monocytes % 3.6 Eosinophils % 1.0 Basophils % 0.3 Absolute Neutrophils 13.5 H Absolute Lymphocytes 1.8 Absolute Monocytes 0.6 Absolute Eosinophils 0.2 Absolute Basophils 0.0 Sodium 138.4 Potassium 4.7 Chloride 98 Carbon Dioxide 30 Anion Gap 10 BUN 10 Creatinine 0.79 Est GFR ( Amer) > 60 Est GFR (Non-Af Amer) > 60 Glucose 353 H Calcium 9.7 Phosphorus 4.0 Magnesium 1.5 L 02/23/17 02/23/17 02/23/17 21:00 21:00 21:00 Creatine Kinase 52 CK-MB (CK-2) < 0.22 Troponin I < 0.012 NT-Pro-B Natriuret Pep 58 Impressions: Chest X-Ray 02/23/17 00:00 IMPRESSION: CARDIAC ENLARGEMENT. VASCULAR CONGESTION. Assessment & Plan - Diagnosis (1) Acute congestive heart failure Qualifiers: Congestive heart failure type: unspecified Qualified Code(s): I50.9 - Heart failure, unspecified Is this a current diagnosis for this admission?: Yes Plan: Obtain echo Place patient on enalapril, Lasix, and metoprolol. 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 (5) Morbid obesity with body mass index of 50 or higher Is this a current diagnosis for this admission?: Yes Plan: Patient is advised to engage actively in weight loss and increase activity as tolerated under the care of her primary care physician - Time Time Spent: 50 to 70 Minutes Medications reviewed and adjusted accordingly: Yes Anticipated discharge: Home - Inpatient Certification Based on my medical assessment, after consideration of the patient's comorbidities, presenting symptoms, or acuity I expect that the services needed warrant INPATIENT care.: Yes I certify that my determination is in accordance with my understanding of Medicare's requirements for reasonable and necessary INPATIENT services [42 CFR 412.3e].: Yes Medical Necessity: Need For Continuous Telemetry Monitoring Post Hospital Care: 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
[2017-02-24 06:49] LABS: APPEARANCE,URINE SLIGHTLY-CLOUDY; BILIRUBIN,URINE NEGATIVE (NEGATIVE); COLOR,URINE STRAW; GLUCOSE, URINE >=500 mg/dL (NEGATIVE); KETONES,URINE NEGATIVE (NEGATIVE); LEUKOCYTE ESTERASE,URINE NEGATIVE (NEGATIVE); NITRITE,URINE NEGATIVE (NEGATIVE); PROTEIN,URINE NEGATIVE (NEGATIVE); URINE SPECIFIC GRAVITY 1.011; UROBILINOGEN,URINE NEGATIVE mg/dL (<2.0)
[2017-02-24] MEDS ORDERED: METFORMIN HCL 500 MG TABLET PO SCH (08:00)
[2017-02-24] MEDS: INSULIN LISPRO 100 UNIT/ML 3 ML VIAL SUBCUT PRN ×3 (08:16→22:41)
[2017-02-24] MEDS: ACETAMINOPHEN 325 MG TABLET PO PRN ×2 (08:23→22:41)
--- NOTE | 2017-02-24 09:36 | EKG REPORT ---
SEVERITY:- BORDERLINE ECG - SINUS TACHYCARDIA PROBABLE LEFT ATRIAL ABNORMALITY : Confirmed by: Bartolo Washington MD 24-Feb-2017 09:35:25
[2017-02-24] MEDS ORDERED: NITROGLYCERIN 0.4 MG/TAB 25 TAB/BOTTLE SL PRN (09:40)
[2017-02-24 09:44] LABS: CREATINE KINASE MB < 0.22 ng/mL (<4.55); TROPONIN I < 0.012 ng/mL
--- NOTE | 2017-02-24 09:52 | PDOC PROGRESS REPORT ---
Subjective Progress Note for:: 02/24/17 Subjective:: Patient relates that breathing is better. She relates that her problem started back in December after she had the flu. She has been thirsty and drinking a lot of water. She has been also urinating a lot however denies visual problems. 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 Reason For Visit: HEART FAILURE Physical Exam Vital Signs: Temp Pulse Resp BP Pulse Ox 98.7 F 117 H 24 H 127/85 H 92 02/24/17 06:01 02/23/17 20:29 02/24/17 08:00 02/24/17 08:00 02/24/17 08:00 General appearance: PRESENT: no acute distress, morbidly obese Head exam: PRESENT: atraumatic, normocephalic Eye exam: PRESENT: conjunctiva pink, EOMI, PERRLA Ear exam: PRESENT: normal external ear exam Mouth exam: PRESENT: moist Neck exam: PRESENT: full ROM. ABSENT: tenderness Respiratory exam: PRESENT: clear to auscultation nohemy Cardiovascular exam: PRESENT: tachycardia. ABSENT: diastolic murmur, systolic murmur Vascular exam: PRESENT: normal capillary refill GI/Abdominal exam: PRESENT: hernia, soft. ABSENT: guarding, tenderness Extremities exam: PRESENT: pedal edema, +1 edema. ABSENT: joint swelling Musculoskeletal exam: PRESENT: full ROM Neurological exam: PRESENT: alert, oriented to person, oriented to place, oriented to time Results Laboratory Results: 02/24/17 03:30 Urine Color STRAW Urine Appearance SLIGHTLY-CLOUDY Urine pH 5.0 Ur Specific [place] 1.011 Urine Protein NEGATIVE Urine Glucose (UA) >=500 H Urine Ketones NEGATIVE Urine Blood NEGATIVE Urine Nitrite NEGATIVE Ur Leukocyte Esterase NEGATIVE Urine WBC (Auto) 0 Urine RBC (Auto) 0 Impressions: Chest X-Ray 02/23/17 00:00 IMPRESSION: CARDIAC ENLARGEMENT. VASCULAR CONGESTION. Assessment & Plan - Diagnosis (1) Acute congestive heart failure Qualifiers: Congestive heart failure type: unspecified Qualified Code(s): I50.9 - Heart failure, unspecified Is this a current diagnosis for this admission?: Yes Plan: Continue diuresis and will trend lytes and magnesium closely. To discontinue short acting metoprolol and instead place her on Toprol-XL 100 mg 1 tablet twice a day (2) Pulmonary vascular congestion Is this a current diagnosis for this admission?: Yes Plan: Suspect may relate to sleep apnea although patient has not been tested for. To request ABG. Will consider CPAP (3) Atypical chest pain Is this a current diagnosis for this admission?: Yes Plan: Likely due to fluid overload. 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 Will add Lantus 40 units twice daily, Humalog pre-meals and continue with sliding scale - Time Time Spent with patient: 15-24 minutes Medications reviewed and adjusted accordingly: Yes Anticipated discharge: Home Within: within 72 hours - Inpatient Certification Based on my medical assessment, after consideration of the patient's comorbidities, presenting symptoms, or acuity I expect that the services needed warrant INPATIENT care.: Yes I certify that my determination is in accordance with my understanding of Medicare's requirements for reasonable and necessary INPATIENT services [42 CFR 412.3e].: Yes Medical Necessity: Other - Diuresis and diagnostics
[2017-02-24] MEDS ORDERED: METOPROLOL TARTRATE 100 MG TABLET PO SCH (10:00)
[2017-02-24] MEDS ORDERED: ASPIRIN 325 MG TABLET, ENT COATED PO SCH (10:00)
[2017-02-24] MEDS ORDERED: INSULIN LISPRO 100 UNIT/ML 3 ML VIAL SUBCUT SCH (10:00)
[2017-02-24] MEDS ORDERED: ENALAPRIL MALEATE 10 MG TABLET PO SCH (10:00)
[2017-02-24] MEDS ORDERED: INSULIN GLARGINE,HUM.REC.ANLOG 300 UNIT/3 ML INSULN.PEN SUBCUT SCH (10:00)
[2017-02-24] MEDS: FUROSEMIDE INJ/PF 40 MG/4 ML SDV IV SCH ×2 (10:08→19:27)
[2017-02-24] MEDS: DOCUSATE SODIUM 100 MG CAPSULE PO SCH (10:08)
[2017-02-24] MEDS: ENOXAPARIN SODIUM INJ 40 MG/0.4 ML DISP.SYRIN SUBCUT SCH (10:08)
[2017-02-24] MEDS: INSULIN LISPRO 100 UNIT/ML 3 ML VIAL SUBCUT SCH ×2 (11:16→17:38)
[2017-02-24] MEDS: INSULIN GLARGINE,HUM.REC.ANLOG 1,000 UNIT/10 ML UNIT SUBCUT SCH ×2 (11:16→22:41)
[2017-02-24] MEDS: METOPROLOL SUCCINATE 50 MG TAB.SR.24H PO SCH ×2 (11:17→22:40)
[2017-02-24 12:00] LABS: ARTERIAL BLOOD BASE EXCESS 1.1 mmol/L; ARTERIAL BLOOD FIO2 ROOM AIR; ARTERIAL BLOOD H2CO3 1.21 mmol/L (1.05-1.35); ARTERIAL BLOOD HCO3 25.5 mmol/L (20-26); ARTERIAL BLOOD O2 SATURATION 94.1 % (94-98); ARTERIAL BLOOD PCO2 40.1 mmHg (35-45); ARTERIAL BLOOD PH 7.42 (7.35-7.45); ARTERIAL BLOOD PO2 68.7 mmHg (80-100); ARTERIAL BLOOD TOTAL CO2 26.8 mmol/L (21-25)
[2017-02-24 15:55] LABS: CREATINE KINASE MB 0.26 ng/mL (<4.55)
[2017-02-24 15:58] LABS: TROPONIN I < 0.012 ng/mL
[2017-02-24] MEDS ORDERED: INFLUENZA ADLT QUAD (36MOS+) 2017-18 VAC 0.5 ML SYR IM PRN (21:51)
[2017-02-24] MEDS: MONTELUKAST SODIUM 10 MG TABLET PO SCH (22:40)
[2017-02-24] MEDS: ATORVASTATIN CALCIUM 80 MG TABLET PO SCH (22:41)
[2017-02-25 06:15] LABS: ANION GAP 15 (5-19); BLOOD UREA NITROGEN 24 mg/dL (7-20); CALCIUM 9.7 mg/dL (8.4-10.2); CARBON DIOXIDE 30 mmol/L (22-30); CHLORIDE 98 mmol/L (98-107); CHOLESTEROL 129.88 mg/dL (0-200); GLUCOSE 188 mg/dL (75-110); MAGNESIUM 1.7 mg/dL (1.6-2.3); POTASSIUM 4.2 mmol/L (3.6-5.0); SODIUM 142.8 mmol/L (137-145); TRIGLYCERIDES 143 mg/dL (<150)
[2017-02-25 06:26] LABS: DIRECT LDL 76 mg/dL (<100)
[2017-02-25] MEDS ORDERED: ASPIRIN 325 MG TABLET, ENT COATED PO SCH (09:56)
[2017-02-25] MEDS ORDERED: FUROSEMIDE INJ/PF 20 MG/2 ML SDV IV SCH (10:00)
[2017-02-25] MEDS ORDERED: ENALAPRIL MALEATE 10 MG TABLET PO SCH (10:00)
--- NOTE | 2017-02-25 10:05 | PDOC PROGRESS REPORT ---
Subjective Progress Note for:: 02/25/17 Subjective:: Patient relates is feeling better. She lacks health insurance and goes to Dr Velasco for her are. Review of systems All organ systems evaluated and negative All significant laboratories and diagnostics have been reviewed Reason For Visit: HEART FAILURE Physical Exam Vital Signs: Temp Pulse Resp BP Pulse Ox 97.9 F 71 18 98/42 L 96 02/25/17 04:43 02/25/17 04:43 02/25/17 04:43 02/25/17 04:43 02/25/17 04:43 Intake & Output 02/24/17 02/25/17 02/26/17 06:59 06:59 06:59 Intake Total 5 Balance 5 Weight 122.8 kg General appearance: PRESENT: no acute distress, cooperative, morbidly obese Head exam: PRESENT: atraumatic, normocephalic Eye exam: PRESENT: conjunctiva pink, EOMI, PERRLA Ear exam: PRESENT: normal external ear exam Mouth exam: PRESENT: moist Neck exam: PRESENT: full ROM. ABSENT: JVD, lymphadenopathy, tenderness Respiratory exam: PRESENT: clear to auscultation nohemy Cardiovascular exam: PRESENT: RRR. ABSENT: diastolic murmur, systolic murmur Vascular exam: PRESENT: normal capillary refill GI/Abdominal exam: PRESENT: normal bowel sounds, soft. ABSENT: tenderness Extremities exam: PRESENT: full ROM, pedal edema. ABSENT: joint swelling Neurological exam: PRESENT: alert, awake, oriented to person, oriented to place , oriented to time Psychiatric exam: PRESENT: appropriate affect, normal mood Skin exam: PRESENT: normal color Results Laboratory Results: 02/25/17 04:25 02/24/17 02/25/17 11:00 04:25 Carbonic Acid 1.21 HCO3/H2CO3 Ratio 21:1 ABG pH 7.42 ABG pCO2 40.1 ABG pO2 68.7 L ABG HCO3 25.5 ABG O2 Saturation 94.1 ABG Base Excess 1.1 FiO2 ROOM AIR Sodium 142.8 Potassium 4.2 Chloride 98 Carbon Dioxide 30 Anion Gap 15 BUN 24 H Creatinine 0.70 Est GFR ( Amer) > 60 Est GFR (Non-Af Amer) > 60 Glucose 188 H Calcium 9.7 Magnesium 1.7 Triglycerides 143 Cholesterol 129.88 LDL Cholesterol Direct 76 VLDL Cholesterol 29.0 HDL Cholesterol 38 L 02/24/17 02/24/1718 08:54 08:54 15:00 Creatine Kinase 56 54 CK-MB (CK-2) < 0.22 Troponin I < 0.012 NT-Pro-B Natriuret Pep 02/24/17 02/25/17 15:00 04:25 Creatine Kinase CK-MB (CK-2) 0.26 Troponin I < 0.012 NT-Pro-B Natriuret Pep 35 Impressions: Chest X-Ray 02/23/17 00:00 IMPRESSION: CARDIAC ENLARGEMENT. VASCULAR CONGESTION. Assessment & Plan - Diagnosis (1) Acute congestive heart failure Qualifiers: Congestive heart failure type: unspecified Qualified Code(s): I50.9 - Heart failure, unspecified Is this a current diagnosis for this admission?: Yes Plan: Discontinue IV Lasix and change to oral. Adjust antihypertensive medications since blood pressure in the upper 90s (2) Pulmonary vascular congestion Is this a current diagnosis for this admission?: Yes Plan: Suspect may relate to sleep apnea although patient has not been tested for. (3) Atypical chest pain Is this a current diagnosis for this admission?: Yes Plan: Likely due to fluid overload. Resolved. 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 Improving and to continue present treatment - Time Time Spent with patient: 15-24 minutes Medications reviewed and adjusted accordingly: Yes Anticipated discharge: Home Within: within 48 hours - Inpatient Certification Based on my medical assessment, after consideration of the patient's comorbidities, presenting symptoms, or acuity I expect that the services needed warrant INPATIENT care.: Yes I certify that my determination is in accordance with my understanding of Medicare's requirements for reasonable and necessary INPATIENT services [42 CFR 412.3e].: Yes Medical Necessity: Significant Comorbidiites Make Outpatient Treatment Too Risky , Risk of Complication if Not Cared For in Hospital
[2017-02-25] MEDS: ENOXAPARIN SODIUM INJ 40 MG/0.4 ML DISP.SYRIN SUBCUT SCH (11:40)
[2017-02-25] MEDS: INSULIN GLARGINE,HUM.REC.ANLOG 1,000 UNIT/10 ML UNIT SUBCUT SCH ×2 (11:40→21:02)
[2017-02-25] MEDS: INSULIN LISPRO 100 UNIT/ML 3 ML VIAL SUBCUT SCH ×3 (11:40→18:15)
[2017-02-25] MEDS: METOPROLOL SUCCINATE 50 MG TAB.SR.24H PO SCH (11:43)
[2017-02-25] MEDS: ASPIRIN 81 MG TABLET, ENT COATED PO SCH (11:43)
[2017-02-25] MEDS: FUROSEMIDE 20 MG TABLET PO SCH (11:43)
[2017-02-25] MEDS: DOCUSATE SODIUM 100 MG CAPSULE PO SCH (11:43)
[2017-02-25] MEDS: INSULIN LISPRO 100 UNIT/ML 3 ML VIAL SUBCUT PRN ×2 (18:15→21:02)
[2017-02-25] MEDS: ATORVASTATIN CALCIUM 80 MG TABLET PO SCH (21:02)
[2017-02-25] MEDS: MONTELUKAST SODIUM 10 MG TABLET PO SCH (21:02)
[2017-02-26] MEDS ORDERED: MAGNESIUM HYDROXIDE SUSP 30 ML UDCUP PO ONE (02:12)
[2017-02-26] MEDS ORDERED: LEVALBUTEROL HCL NEB 1.25 MG/3 ML AMPUL NEB PRN ×2 (03:15→03:30)
[2017-02-26 07:06] LABS: ABSOLUTE BASOPHILS # (AUTO) 0.1 10^3/uL (0.0-0.2); ABSOLUTE EOSINOPHILS # (AUTO) 0.3 10^3/uL (0.0-0.6); ABSOLUTE LYMPHOCYTES (AUTO) 3.2 10^3/uL (0.5-4.7); ABSOLUTE MONOCYTES (AUTO) 0.7 10^3/uL (0.1-1.4); ABSOLUTE NEUT (AUTO) 7.4 10^3/uL (1.7-8.2); BASOPHILS % (AUTO) 0.7 % (0-2); EOSINOPHILS % (AUTO) 2.7 % (0-6); HEMATOCRIT 35.4 % (36.0-47.0); LYMPHOCYTES % (AUTO) 27.3 % (13-45); MEAN CORPUSCULAR HEMOGLOBIN 22.6 pg (27.0-33.4); MEAN CORPUSCULAR HGB CONC 31.1 g/dL (32.0-36.0); MEAN CORPUSCULAR VOLUME 73 fl (80-97); PLATELET COUNT 485 10^3/uL (150-450); RED BLOOD COUNT 4.89 10^6/uL (3.72-5.28); RED CELL DISTRIBUTION WIDTH 18.4 % (11.5-14.0); SEGMENTED NEUTROPHILS % (AUTO) 63.3 % (42-78); TOTAL CELLS COUNTED % (AUTO) 100 %; WHITE BLOOD COUNT 11.7 10^3/uL (4.0-10.5)
[2017-02-26 07:25] LABS: ANION GAP 11 (5-19); BLOOD UREA NITROGEN 16 mg/dL (7-20); CALCIUM 9.5 mg/dL (8.4-10.2); CARBON DIOXIDE 30 mmol/L (22-30); CHLORIDE 102 mmol/L (98-107); GLUCOSE 137 mg/dL (75-110); MAGNESIUM 1.9 mg/dL (1.6-2.3); POTASSIUM 4.4 mmol/L (3.6-5.0); SODIUM 143.4 mmol/L (137-145)
[2017-02-26] MEDS: INSULIN LISPRO 100 UNIT/ML 3 ML VIAL SUBCUT SCH ×3 (09:04→17:13)
[2017-02-26] MEDS ORDERED: SORBITOL 70% SOLUTION 30 ML UDC PO PRN (09:35)
[2017-02-26] MEDS ORDERED: BISACODYL 10 MG SUPP.RECT PR PRN (09:37)
[2017-02-26] MEDS ORDERED: (PENDING PHARMACY ID) (Enalapril Maleate [Vasotec 20 Mg Tablet] 20 MG) PO SCH (10:00)
[2017-02-26] MEDS ORDERED: DOCUSATE SODIUM 100 MG CAPSULE PO SCH (10:00)
[2017-02-26] MEDS ORDERED: ENALAPRIL MALEATE 10 MG TABLET PO SCH ×2 (10:00)
[2017-02-26] MEDS: ENALAPRIL MALEATE 10 MG TABLET PO SCH (10:45)
[2017-02-26] MEDS: FUROSEMIDE 40 MG TABLET PO SCH (10:46)
[2017-02-26] MEDS: ASPIRIN 81 MG TABLET, ENT COATED PO SCH (10:46)
[2017-02-26] MEDS: METOPROLOL SUCCINATE 50 MG TAB.SR.24H PO SCH (10:46)
[2017-02-26] MEDS: INSULIN GLARGINE,HUM.REC.ANLOG 1,000 UNIT/10 ML UNIT SUBCUT SCH ×2 (10:47→22:11)
[2017-02-26] MEDS: POLYETHYLENE GLYCOL 3350 POWDER 17 GM/1 PACKET PO SCH ×2 (10:47→17:14)
[2017-02-26] MEDS: ENOXAPARIN SODIUM INJ 40 MG/0.4 ML DISP.SYRIN SUBCUT SCH (10:48)
--- NOTE | 2017-02-26 11:01 | PDOC PROGRESS REPORT ---
Subjective Progress Note for:: 02/26/17 Subjective:: Patient relates is feeling better. States not been able to move her bowels for the past 5 days Review of systems All organ systems evaluated and negative All significant laboratories and diagnostics have been reviewed Reason For Visit: HEART FAILURE Physical Exam Vital Signs: Temp Pulse Resp BP Pulse Ox 97.8 F 79 16 132/57 H 98 02/26/17 02:57 02/26/17 07:00 02/26/17 03:35 02/26/17 02:57 02/26/17 02:57 Intake & Output 02/25/17 02/26/17 02/27/17 06:59 06:59 06:59 Intake Total 5 1500 Balance 5 1500 Weight 122.8 kg 122.8 kg General appearance: PRESENT: no acute distress, cooperative, morbidly obese Head exam: PRESENT: atraumatic, normocephalic Eye exam: PRESENT: conjunctiva pink, EOMI, PERRLA Ear exam: PRESENT: normal external ear exam Mouth exam: PRESENT: moist Neck exam: PRESENT: full ROM, tenderness. ABSENT: JVD, lymphadenopathy Respiratory exam: PRESENT: clear to auscultation nohemy Cardiovascular exam: PRESENT: RRR. ABSENT: diastolic murmur, systolic murmur Vascular exam: PRESENT: normal capillary refill GI/Abdominal exam: PRESENT: normal bowel sounds, soft. ABSENT: tenderness Extremities exam: PRESENT: full ROM, pedal edema. ABSENT: joint swelling Musculoskeletal exam: PRESENT: ambulatory Neurological exam: PRESENT: alert, oriented to person, oriented to place, oriented to time, CN II-XII grossly intact Psychiatric exam: PRESENT: appropriate affect, normal mood Skin exam: PRESENT: normal color Results Laboratory Results: 02/26/17 06:43 02/26/17 06:43 02/26/17 02/26/17 06:43 06:43 WBC 11.7 H RBC 4.89 Hgb 11.0 L Hct 35.4 L MCV 73 L MCH 22.6 L MCHC 31.1 L RDW 18.4 H Plt Count 485 H Seg Neutrophils % 63.3 Lymphocytes % 27.3 Monocytes % 6.0 Eosinophils % 2.7 Basophils % 0.7 Absolute Neutrophils 7.4 Absolute Lymphocytes 3.2 Absolute Monocytes 0.7 Absolute Eosinophils 0.3 Absolute Basophils 0.1 Sodium 143.4 Potassium 4.4 Chloride 102 Carbon Dioxide 30 Anion Gap 11 BUN 16 Creatinine 0.47 L Est GFR ( Amer) > 60 Est GFR (Non-Af Amer) > 60 Glucose 137 H Calcium 9.5 Magnesium 1.9 02/24/17 02/24/17 02/24/17 08:54 08:54 15:00 Creatine Kinase 56 54 CK-MB (CK-2) < 0.22 Troponin I < 0.012 NT-Pro-B Natriuret Pep 02/24/17 02/25/17 15:00 04:25 Creatine Kinase CK-MB (CK-2) 0.26 Troponin I < 0.012 NT-Pro-B Natriuret Pep 35 Impressions: Chest X-Ray 02/23/17 00:00 IMPRESSION: CARDIAC ENLARGEMENT. VASCULAR CONGESTION. Assessment & Plan - Diagnosis (1) Acute congestive heart failure Qualifiers: Congestive heart failure type: unspecified Qualified Code(s): I50.9 - Heart failure, unspecified Is this a current diagnosis for this admission?: Yes Plan: Continue Vasotec, Lasix and Toprol-XL. Echocardiogram pending to determine if diastolic dysfunction (2) Pulmonary vascular congestion Is this a current diagnosis for this admission?: Yes Plan: Suspect may relate to sleep apnea although patient has not been tested for. (3) Atypical chest pain Is this a current diagnosis for this admission?: Yes Plan: Likely due to fluid overload. Resolved. 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 Improving and to continue present treatment. Patient terrified of having to use insulin as outpatient. Made aware that we will try to modify her regimen with oral and educated her about the use of insulin. (5) Constipation Qualifiers: Constipation type: unspecified constipation type Qualified Code(s): K59.00 - Constipation, unspecified Is this a current diagnosis for this admission?: Yes Plan: Chronic nature. Will order multiple modalities aiming to try to see if patient can follow the same regimen as outpatient if good response (6) Leukocytosis, unspecified Qualifiers: Leukocytosis type: unspecified Qualified Code(s): D72.829 - Elevated white blood cell count, unspecified Is this a current diagnosis for this admission?: Yes Plan: Improving without any further intervention - Time Time Spent with patient: 15-24 minutes Medications reviewed and adjusted accordingly: Yes Anticipated discharge: Home Within: within 24 hours - Inpatient Certification Based on my medical assessment, after consideration of the patient's comorbidities, presenting symptoms, or acuity I expect that the services needed warrant INPATIENT care.: Yes I certify that my determination is in accordance with my understanding of Medicare's requirements for reasonable and necessary INPATIENT services [42 CFR 412.3e].: Yes Medical Necessity: Significant Comorbidiites Make Outpatient Treatment Too Risky
[2017-02-26] MEDS: INSULIN LISPRO 100 UNIT/ML 3 ML VIAL SUBCUT PRN ×3 (12:55→22:11)
[2017-02-26] MEDS: FUROSEMIDE 20 MG TABLET PO SCH (12:58)
[2017-02-26] MEDS: METFORMIN HCL 500 MG TABLET PO SCH (17:14)
--- NOTE | 2017-02-26 17:23 | XCELERA REPORT ---
[address] [address] Transthoracic Echocardiogram Report Name: ROEL MANCIA Age: 56 yrs Gender: Female : 1960 Patient Status: Inpatient Patient Location: [address] [place] [address] Study Date: 02/26/2017 02:44 PM Height: 63 in Weight: 278 lb BSA: 2.2 m2 Procedure: A two-dimensional transthoracic echocardiogram with color flow and Doppler was performed. Poor doppler interogation and endocardial defenition. Study Quality: Technically suboptimal. The study was technically difficult with many images being suboptimal in quality. Reason For Study: chf History: CHF. Ordering Physician: MELISSA SALGADO Performed By: Linda Garcia Interpretation Summary Doppler measurements suggest impaired left ventricular relaxation, which is associated with grade I/IV or mild diastolic dysfunction A two-dimensional transthoracic echocardiogram with color flow and Doppler was performed. Probably normal LV size.LEVF is normal.Probably no regional wall motion abnormality..Probably mild LVH. Doppler measurements suggest impaired left ventricular relaxation, which is associated with grade I/IV or mild diastolic dysfunction Not well seen to comment. No regurgitant or stenotic lesions of valves..No pericardial effusion. MMode/2D Measurements & Calculations RVDd: 2.8 cm LVIDd: 3.9 cm FS: 29.1 % Ao root diam: 3.9 cm IVSd: 1.3 cm LVIDs: 2.8 cm EDV(Teich): 66.3 ml LVPWd: 1.2 cm ESV(Teich): 28.9 ml Ao root area: 12.0 cm2 EF(Teich): 56.4 % Doppler Measurements & Calculations MV E max ana: MV dec slope: Ao V2 max: LV V1 max P.9 cm/sec 165.2 cm/sec 3.9 mmHg MV A max aan: 348.1 cm/sec2 Ao max PG: LV V1 max: 143.1 cm/sec MV dec time: 10.9 mmHg 99.3 cm/sec MV E/A: 0.76 0.31 sec Left Ventricle A two-dimensional transthoracic echocardiogram with color flow and Doppler was performed. Probably normal LV size.LEVF is normal.Probably no regional wall motion abnormality..Probably mild LVH. Doppler measurements suggest impaired left ventricular relaxation, which is associated with grade I/IV or mild diastolic dysfunction Not well seen to comment. No regurgitant or stenotic lesions of valves..No pericardial effusion. Doppler measurements suggest impaired left ventricular relaxation, which is associated with grade I/IV or mild diastolic dysfunction. : MELISSA SALGADO > Perla Lucio
[2017-02-26] MEDS ORDERED: SENNOSIDES/DOCUSATE 8.6-50 MG 1 EACH TABLET PO SCH (22:00)
[2017-02-26] MEDS: ATORVASTATIN CALCIUM 80 MG TABLET PO SCH (22:08)
[2017-02-26] MEDS: MONTELUKAST SODIUM 10 MG TABLET PO SCH (22:09)
[2017-02-27] MEDS: INSULIN GLARGINE,HUM.REC.ANLOG 1,000 UNIT/10 ML UNIT SUBCUT SCH (09:12)
[2017-02-27] MEDS: ENOXAPARIN SODIUM INJ 40 MG/0.4 ML DISP.SYRIN SUBCUT SCH (09:13)
[2017-02-27] MEDS: METOPROLOL SUCCINATE 50 MG TAB.SR.24H PO SCH (09:14)
[2017-02-27] MEDS: POLYETHYLENE GLYCOL 3350 POWDER 17 GM/1 PACKET PO SCH (09:14)
[2017-02-27] MEDS: METFORMIN HCL 500 MG TABLET PO SCH (09:15)
[2017-02-27] MEDS: FUROSEMIDE 40 MG TABLET PO SCH (09:15)
[2017-02-27] MEDS: ENALAPRIL MALEATE 10 MG TABLET PO SCH (09:15)
[2017-02-27] MEDS: INSULIN LISPRO 100 UNIT/ML 3 ML VIAL SUBCUT SCH ×2 (09:20→11:18)
[2017-02-27 10:39] VITALS: BP 137/73
[2017-02-27] MEDS: INSULIN LISPRO 100 UNIT/ML 3 ML VIAL SUBCUT PRN (11:19)
[2017-02-27] MEDS: ASPIRIN 81 MG TABLET, ENT COATED PO SCH (11:22)
[2017-02-27] MEDS ORDERED: AMLODIPINE BESYLATE 5 MG TABLET PO ONE (11:30)
--- NOTE | 2017-02-27 16:57 | PDOC DISCHARGE SUMMARY ---
General - Admit/Disc Date/PCP Admission Date/Primary Care Provider: 02/24/17 03:06 DIANNA NUR MD Discharge Date: 02/27/17 - Discharge Diagnosis (1) Acute congestive heart failure Is this a current diagnosis for this admission?: Yes (2) Pulmonary vascular congestion Is this a current diagnosis for this admission?: Yes (3) Atypical chest pain Is this a current diagnosis for this admission?: Yes (4) Hyperglycemia due to type 2 diabetes mellitus Is this a current diagnosis for this admission?: Yes (5) Constipation Is this a current diagnosis for this admission?: Yes (6) Leukocytosis, unspecified Is this a current diagnosis for this admission?: Yes (7) Morbid obesity with BMI of 50.0-59.9, adult Is this a current diagnosis for this admission?: Yes (8) Anemia Is this a current diagnosis for this admission?: Yes - Additional Information Resuscitation Status: Full Code Discharge Diet: Cardiac, Diabetic Discharge Activity: Activity As Tolerated, Balance Activity w/Rest, Weigh Daily Prescriptions: Amlodipine Besylate [Norvasc 5 mg Tablet] 5 mg PO DAILY #30 tablet Glipizide [Glucotrol Xl] 10 mg PO BID #60 tab.er.24 Metoprolol Succinate [Toprol Xl 50 mg Tab.sr] 100 mg PO DAILY #30 tab.sr.24h Home Medications: Albuterol Sulfate [Albuterol Sulfate 2.5mg/3 mL] 1 vial NEB QIDP PRN 02/24/17 Aspirin [Aspirin 325 mg Tablet] 325 mg PO DAILY 02/24/17 Atorvastatin Calcium [Lipitor 80 mg Tablet] 80 mg PO DAILY 02/24/17 Enalapril Maleate [Vasotec 20 mg Tablet] 20 mg PO DAILY 02/24/17 Furosemide [Lasix 40 mg Tablet] 40 mg PO DAILY 02/24/17 Metformin HCl [Glucophage] 1,000 mg PO BID 02/24/17 Montelukast Sodium [Singulair 10 mg Tablet] 10 mg PO QHS 02/24/17 Amlodipine Besylate [Norvasc 5 mg Tablet] 5 mg PO DAILY #30 tablet 02/27/17 Glipizide [Glucotrol Xl] 10 mg PO BID #60 tab.er.24 02/27/17 Metoprolol Succinate [Toprol Xl 50 mg Tab.sr] 100 mg PO DAILY #30 tab.sr.24h History of Present Illness History of Present Illness: ROEL MANCIA is a 56 year old female with past medical history of asthma, diabetes mellitus, hypertension and morbid obesity who presented to the emergency department with complaints of shortness of breath. Patient reports that she has been having shortness of breath for several months but it has been worsening over the past several days. Patient reports that she drinks between 8 -10 and sometimes even 12/2 L bottles of water daily. She also reports that despite being prescribed enalapril, Lasix and hydrochlorothiazide but she does not take these medications. She does take Metformin and metoprolol. She takes off/on her Singulair. Patient reported that she was placed on prednisone about 2 weeks ago by her primary care physician. Patient reported some lower extremity swelling and some abdominal swelling as well. Patient is found to be grossly volume overloaded in the emergency department and referred to the hospital service for acute congestive heart failure. Hospital Course Hospital Course: Patient was diuresis with further improvement of complaints of shortness of breath. Chest pain was deemed to be secondary to fluid overload. Patient had been educated about fluid restriction. Echocardiogram demonstrated EF of 60% and diastolic dysfunction. We added Norvasc and Toprol XL to outpatient regimen. Opted to discontinue HCTZ but continued Lasix. Patient had been encouraged as to take her medications on a regular basis and to limit fluid intake to no more of 1500 mls per day. Hemoglobin A1c was 10.5. While hospitalized she was treated with Lantus, pre-meal insulin and insulin sliding scale with further improvement. Patient had been made aware that it was of extreme importance for her to lose weight and to exercise. She was somewhat reluctant to use insulin as outpatient. Despite she was made aware that eventually she may need to pursue the use of insulin. She is contemplating to go for gastric sleeve surgery and is trying to save money for the surgery. She was advised as to take metformin as previously advised and placed her on Glucotrol XL 10 mg twice daily. Patient has also made aware that she may benefit from being tested for sleep apnea. One of the limitations is that patient does not have health insurance. Hemoglobin remained stable and deemed to be due to chronic disease. On presentation she demonstrated elevated white blood cell count which trending down with no intervention. Patient did not display any signs of an active infection and likely is related to stress. Since patient had achieved maximum benefit of hospitalization stay prompted to discharge under stable condition Physical Exam Vital Signs: Temp Pulse Resp BP Pulse Ox 98.1 F 85 18 136/75 H 94 02/27/17 00:09 02/27/17 02:00 02/27/17 03:46 02/27/17 00:09 02/27/17 03:46 Intake & Output 02/26/17 02/27/17 02/28/17 06:59 06:59 06:59 Intake Total 1500 2059 Output Total 900 Balance 1500 1159 Weight 122.8 kg 124.2 kg General appearance: PRESENT: no acute distress, cooperative, morbidly obese Head exam: PRESENT: atraumatic, normocephalic Eye exam: PRESENT: conjunctiva pink, EOMI, PERRLA Ear exam: PRESENT: normal external ear exam, TM's normal bilaterally Mouth exam: PRESENT: moist, neck supple Neck exam: PRESENT: full ROM. ABSENT: JVD, lymphadenopathy, tenderness Respiratory exam: PRESENT: clear to auscultation nohemy Cardiovascular exam: PRESENT: RRR. ABSENT: diastolic murmur, systolic murmur Vascular exam: PRESENT: normal capillary refill GI/Abdominal exam: PRESENT: normal bowel sounds, soft. ABSENT: tenderness Extremities exam: PRESENT: full ROM. ABSENT: joint swelling, pedal edema Musculoskeletal exam: PRESENT: ambulatory Neurological exam: PRESENT: alert, awake, oriented to person, oriented to place , oriented to time, CN II-XII grossly intact Psychiatric exam: PRESENT: appropriate affect, normal mood Skin exam: PRESENT: intact, normal color Results Laboratory Results: 02/26/17 06:43 02/26/17 06:43 02/24/17 02/24/17 02/24/17 08:54 08:54 15:00 Creatine Kinase 56 54 CK-MB (CK-2) < 0.22 Troponin I < 0.012 NT-Pro-B Natriuret Pep 02/24/17 02/25/17 15:00 04:25 Creatine Kinase CK-MB (CK-2) 0.26 Troponin I < 0.012 NT-Pro-B Natriuret Pep 35 Impressions: Chest X-Ray 02/23/17 00:00 IMPRESSION: CARDIAC ENLARGEMENT. VASCULAR CONGESTION. Plan Discharge Plan: Discharge home Time Spent: Less than 30 Minutes
== END 2017-02-27 12:07 | disposition home or self-care (01) | DRG 292 ==
LOC: ER 19:30 → EH 02-24 03:06 → 4W 02-24 20:00
PROVIDERS: ADMIT Family Medicine; ATTEND Family Medicine
PROC: 3E0F73Z Introduction of Anti-inflammatory into Respiratory Tract, Via Natural or Artificial Opening (ICD-10-PCS; principal; 2017-02-26)
PROC: 3E0234Z Introduction of Serum, Toxoid and Vaccine into Muscle, Percutaneous Approach (ICD-10-PCS; 2017-02-27)
DX: I11.0 Hypertensive heart disease with heart failure (principal); Z68.42 Body mass index [BMI] 45.0-49.9, adult; I50.31 Acute diastolic (congestive) heart failure; R09.89 Other specified symptoms and signs involving the circulatory and respiratory systems; R07.89 Other chest pain; E11.65 Type 2 diabetes mellitus with hyperglycemia; K59.00 Constipation, unspecified; E66.01 Morbid (severe) obesity due to excess calories; D64.9 Anemia, unspecified; J45.909 Unspecified asthma, uncomplicated; E78.5 Hyperlipidemia, unspecified; E11.9 Type 2 diabetes mellitus without complications; F32.9 Major depressive disorder, single episode, unspecified; I25.10 Atherosclerotic heart disease of native coronary artery without angina pectoris; Z95.5 Presence of coronary angioplasty implant and graft; I25.2 Old myocardial infarction; Z23 Encounter for immunization; Z79.899 Other long term (current) drug therapy; Z90.49 Acquired absence of other specified parts of digestive tract; Z83.3 Family history of diabetes mellitus; Z82.49 Family history of ischemic heart disease and other diseases of the circulatory system; Z83.49 Family history of other endocrine, nutritional and metabolic diseases; Z83.79 Family history of other diseases of the digestive system
CPT/HCPCS: 36415; 36600; 71046; 80048; 80061; 81001; 82550; 82553; 82803; 82962; 83036; 83735; 83880; 84100; 84439; 84443; 84484; 85025; 85379; 90686; 93005; 93010; 93306; 94640; 96365; 96375; 99285; J1650; J1815; J1940; J3475; J3490; J7512; J7620

== ENCOUNTER 2018-01-24 17:30 | Emergency (ER) | payer OTHER ==
[2018-01-24] MEDS ORDERED: BACLOFEN 20 MG TABLET PO ONE (18:42)
[2018-01-24] MEDS ORDERED: KETOROLAC TROMETHAMINE 60 MG/2 ML SDV IM ONE (18:42)
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
[2018-01-24 20:38] VITALS: BP 160/97
== END 2018-01-24 20:38 | disposition home or self-care (01) ==
LOC: ER 17:30
DX: S13.9XXA Sprain of joints and ligaments of unspecified parts of neck, initial encounter (principal); S33.5XXA Sprain of ligaments of lumbar spine, initial encounter; S39.012A Strain of muscle, fascia and tendon of lower back, initial encounter; V43.52XA Car driver injured in collision with other type car in traffic accident, initial encounter; M47.9 Spondylosis, unspecified; E66.01 Morbid (severe) obesity due to excess calories; E11.9 Type 2 diabetes mellitus without complications; I25.10 Atherosclerotic heart disease of native coronary artery without angina pectoris; I10 Essential (primary) hypertension; J45.909 Unspecified asthma, uncomplicated
CPT/HCPCS: 99284; 96372; 82962; 72050; 72110; 72070; J1885; J3490

== ENCOUNTER 2018-07-02 14:27 | Inpatient (IN) | payer OTHER ==
[2018-07-02 15:14] LABS: ABSOLUTE BASOPHILS # (AUTO) 0.1 10^3/uL (0.0-0.2); ABSOLUTE LYMPHOCYTES (AUTO) 0.9 10^3/uL (0.5-4.7); ABSOLUTE MONOCYTES (AUTO) 0.6 10^3/uL (0.1-1.4); BASOPHILS % (AUTO) 0.4 % (0-2); EOSINOPHILS % (AUTO) 0.1 % (0-6); HEMATOCRIT 38.7 % (36.0-47.0); HEMOGLOBIN 12.6 g/dL (12.0-15.5); LYMPHOCYTES % (AUTO) 5.1 % (13-45); MEAN CORPUSCULAR HEMOGLOBIN 26.9 pg (27.0-33.4); MEAN CORPUSCULAR HGB CONC 32.6 g/dL (32.0-36.0); MEAN CORPUSCULAR VOLUME 82 fl (80-97); MONOCYTES % (AUTO) 3.8 % (3-13); PLATELET COUNT 336 10^3/uL (150-450); RED CELL DISTRIBUTION WIDTH 16.2 % (11.5-14.0); SEGMENTED NEUTROPHILS % (AUTO) 90.6 % (42-78); TOTAL CELLS COUNTED % (AUTO) 100 %; WHITE BLOOD COUNT 16.6 10^3/uL (4.0-10.5)
[2018-07-02 15:25] LABS: PROTHROMBIN TIME 12.6 SEC (11.4-15.4)
[2018-07-02 15:50] LABS: APPEARANCE,URINE SLIGHTLY-CLOUDY; BILIRUBIN,URINE NEGATIVE (NEGATIVE); COLOR,URINE YELLOW; GLUCOSE, URINE >=500 mg/dL (NEGATIVE); KETONES,URINE TRACE mg/dL (NEGATIVE); LEUKOCYTE ESTERASE,URINE NEGATIVE (NEGATIVE); NITRITE,URINE NEGATIVE (NEGATIVE); PROTEIN,URINE 100 mg/dL (NEGATIVE); URINE SPECIFIC GRAVITY 1.015; UROBILINOGEN,URINE NEGATIVE mg/dL (<2.0)
[2018-07-02 15:52] LABS: ALANINE AMINOTRANSFERASE 21 U/L (9-52); ALBUMIN 4.1 g/dL (3.5-5.0); ALKALINE PHOSPHATASE 131 U/L (38-126); ANION GAP 15 (5-19); ASPARTATE AMINO TRANSFERASE 23 U/L (14-36); BILIRUBIN,DIRECT 0.3 mg/dL (0.0-0.4); BILIRUBIN,TOTAL 0.6 mg/dL (0.2-1.3); BLOOD UREA NITROGEN 13 mg/dL (7-20); CALCIUM 9.2 mg/dL (8.4-10.2); CARBON DIOXIDE 27 mmol/L (22-30); CHLORIDE 96 mmol/L (98-107); GLUCOSE 313 mg/dL (75-110); POTASSIUM 3.8 mmol/L (3.6-5.0); SODIUM 137.8 mmol/L (137-145); TOTAL PROTEIN 7.7 g/dL (6.3-8.2)
[2018-07-02] MEDS ORDERED: NORMAL SALINE 1000 ML 1,000 ML IV ONE (15:58)
--- NOTE | 2018-07-02 15:58 | ER Document Report ---
ED General - General Chief Complaint: Nausea/Vomiting Stated Complaint: FEVER Time Seen by Provider: 07/02/18 14:52 Information source: Patient, Relative Notes: 57-year-old [place] Citizen-speaking female with unknown past medical history who presents today with the onset last night of fevers, shortness of breath, cough, without chest pain. Some baseline lower extremity edema. Patient has had bouts of vomiting without diarrhea. No blood in the vomit. She denies any chest pain, sore throat, abdominal pain, flank pain, or dysuria. Mild headache with minimal runny nose. Patient had an oxygen saturation by EMS of less than 90. Temperature around 101. TRAVEL OUTSIDE OF THE [place] IN LAST 30 DAYS: No - Related Data Allergies/Adverse Reactions: No Known Allergies Allergy (Verified 02/23/17 19:33) Past Medical History - Social History Smoking Status: Unknown if Ever Smoked Family History: Reviewed & Not Pertinent Patient has suicidal ideation: No Patient has homicidal ideation: No - Past Medical History Cardiac Medical History: Reports: Hx Congestive Heart Failure, Hx Coronary Artery Disease, Hx Heart Attack, Hx Hypercholesterolemia, Hx Hypertension Pulmonary Medical History: Reports: Hx Asthma Endocrine Medical History: Reports: Hx Diabetes Mellitus Type 2 Renal/ Medical History: Denies: Hx Peritoneal Dialysis Psychiatric Medical History: Reports: Hx Depression Past Surgical History: Reports: Hx Cardiac Catheterization, Hx Section, Hx Cholecystectomy, Hx Herniorrhaphy - Immunizations Hx Diphtheria, Pertussis, Tetanus Vaccination: Yes Review of Systems - Review of Systems Constitutional: Fever EENT: Nose congestion, Nose discharge. denies: Eye discharge Cardiovascular: denies: Chest pain, Palpitations Respiratory: Cough, Short of breath, Sputum, Wheezing Gastrointestinal: Vomiting. denies: Diarrhea Genitourinary: denies: Dysuria Musculoskeletal: Leg swelling - At baseline Skin: Other - no hives. denies: Rash Neurological/Psychological: Other - no slurred speech -: Yes All other systems reviewed and negative Physical Exam - Vital signs Vitals: Resp 36 H 07/02/18 14:43 Interpretation: Normal Notes: Reviewed vital signs and nursing note as charted by RN. CONSTITUTIONAL: Alert and oriented and responds appropriately to questions. Well-appearing; well-nourished HEAD: Normocephalic; atraumatic EYES: PERRL; Conjunctivae clear, sclerae non-icteric ENT: Normal nose; bilateral nonpurulent nasal rhinorrhea; moist mucous membranes; pharynx without lesions noted NECK: Supple without meningismus; non-tender; no cervical lymphadenopathy, no masses CARD: Regular rate and rhythm; no murmurs; symmetric distal pulses RESP: Normal chest excursion without splinting or tachypnea; breath sounds clear and equal bilaterally; no wheezing or rales with some scattered rhonchi ABD/GI: Normal bowel sounds; elevated BMI; soft, non-tender; no palpable organomegaly or masses BACK: The back appears normal and is non-tender to palpation EXT: Normal ROM in all joints; non-tender to palpation; no edema SKIN: No acute lesions noted NEURO: CN 2-12 intact; 5/5 bilateral upper and lower extremity strength with sensation intact to light touch PSYCH: The patient's mood and manner are appropriate. Grooming and personal hygiene are appropriate. Course - Re-evaluation Re-evalutation: Given the above history and physical, tachycardia, elevated respiratory rate, the sepsis protocol was initially started in triage. Given the patient's possible history of CHF, with some lower extremity edema, I will hold on copious fluids at this moment. I will provide 1 L and reassess. Antipyretics provided by EMS. 07/02/18 15:57 Labs thus far as recorded. I have added on a BNP. X-ray was not ordered in triage so I have ordered 1 and called to the radiology department to help expedite the procedure. Initial EKG shows heart rate of 122, sinus tachycardia, normal axis, no obvious ST elevation or depression. 07/02/18 16:01 We have found the patient's past medical history and medication list. It does appear that the patient has a history of CHF, asthma, hypertension, and diabetes . She does take Lasix 40 mg daily. I will provide duo nebulizer and await for the x-ray. We have provided 1 L of fluid and I will hold at this time given the history of CHF. 07/02/18 17:00 ABG as recorded. No excessive CO2 retention. BNP is 183. 07/02/18 17:33 X-ray as recorded. The radiologist is not calling an infiltrate but it does appear to be increased lung markings in the left lower lobe compared to the previous x-ray. Given the cough, fever, white count, with no headache at this time, I do believe pneumonia is likely. I do believe acute bacterial meningitis given the lack of any headache, neck pain, change in mental status, rash, to be extremely unlikely. Antibiotics have been provided. Patient will be admitted to the hospitalist service. - Vital Signs Vital signs: Temp Pulse Resp BP Pulse Ox 35 H 168/87 H 91 L 07/02/18 15:01 07/02/18 15:01 07/02/18 15:01 - Laboratory Result Diagrams: 07/02/18 14:52 07/02/18 14:52 Laboratory results interpreted by me: 07/02/18 07/02/18 07/02/18 14:52 14:52 14:52 WBC 16.6 H MCH 26.9 L RDW 16.2 H Seg Neutrophils % 90.6 H Lymphocytes % 5.1 L Absolute Neutrophils 15.0 H Carbonic Acid ABG pCO2 ABG pO2 ABG HCO3 ABG Total CO2 Chloride 96 L Creatinine 0.50 L Glucose 313 H POC Glucose Lactic Acid 3.2 H Alkaline Phosphatase 131 H Urine Protein Urine Glucose (UA) Urine Ketones 07/02/18 07/02/18 07/02/18 15:18 15:23 16:18 WBC MCH RDW Seg Neutrophils % Lymphocytes % Absolute Neutrophils Carbonic Acid 1.41 H ABG pCO2 46.7 H ABG pO2 111.1 H ABG HCO3 26.6 H ABG Total CO2 28.0 H Chloride Creatinine Glucose POC Glucose 299 H Lactic Acid Alkaline Phosphatase Urine Protein 100 H Urine Glucose (UA) >=500 H Urine Ketones TRACE H Discharge - Discharge Clinical Impression: Shortness of breath Fever Qualifiers: Fever type: unspecified Qualified Code(s): R50.9 - Fever, unspecified Condition: Fair Disposition: ADMITTED INPATIENT Admitting Provider: Mayur (Hospitalist) Unit Admitted: [facility]
[2018-07-02] MEDS ORDERED: CEFTRIAXONE 1 GM/D5W RTU 1 GM/50 ML RTUPB IV ONE (16:08)
[2018-07-02] MEDS ORDERED: AZITHROMYCIN INJ 500 MG VIAL IV ONE (16:08)
[2018-07-02] MEDS ORDERED: IPRATROPIUM/ALBUTEROL 0.5-2.5 MG/3 ML AMPUL NEB SCH (16:15)
[2018-07-02] MEDS: MAGNESIUM SULFATE/D5W 1 GM/100 ML RTUPB IV SCH ×2 (16:34→17:53)
[2018-07-02 16:41] LABS: ARTERIAL BLOOD BASE EXCESS 0.9 mmol/L; ARTERIAL BLOOD H2CO3 1.41 mmol/L (1.05-1.35); ARTERIAL BLOOD HCO3 26.6 mmol/L (20-24); ARTERIAL BLOOD O2 SATURATION 97.9 % (94-98); ARTERIAL BLOOD PCO2 46.7 mmHg (35-45); ARTERIAL BLOOD PH 7.37 (7.35-7.45); ARTERIAL BLOOD PO2 111.1 mmHg (80-100)
[2018-07-02 16:42] LABS: ARTERIAL BLOOD FIO2 4L
--- NOTE | 2018-07-02 17:25 | RADIOLOGY REPORT (SQ) ---
EXAM DESCRIPTION: CHEST 2 VIEWS COMPLETED DATE/TIME: 07/02/2018 5:11 pm REASON FOR STUDY: 20; sob; cough COMPARISON: 02/23/2017 EXAM PARAMETERS: NUMBER OF VIEWS: two views TECHNIQUE: Digital Frontal and Lateral radiographic views of the chest acquired. RADIATION DOSE: NA LIMITATIONS: none FINDINGS: LUNGS AND PLEURA: No opacities, masses or pneumothorax. No pleural effusion. MEDIASTINUM AND HILAR STRUCTURES: No masses or contour abnormalities. HEART AND VASCULAR STRUCTURES: Cardiomegaly. No jennifer pulmonary edema. BONES: No acute findings. HARDWARE: None in the chest. OTHER: No other significant finding. IMPRESSION: Cardiomegaly. No jennifer pulmonary edema. TECHNICAL DOCUMENTATION: JOB ID: [id number] [employer]- All Rights Reserved Reading location - IP/workstation name: [email or web address]
--- NOTE | 2018-07-02 18:08 | PDOC H&P ---
History of Present Illness History of Present Illness: ROEL MANCIA is a 57 year old female patient with past medical history of coronary artery disease, hypertension, hyperlipidemia, morbid obesity, diabetes mellitus, hypertension, bronchial asthma and CHF is not chief complaint of fever, shortness of breath cough, and anxiety. Reported she has been in her usual baseline state of health up until last night when she started to have the above-mentioned complaints. Her initial blood work shows leukocytosis, elevated lactic acid and her chest x-ray shows left lower lobe infiltrate which is compatible with pneumonia. Patient has had bouts of vomiting without diarrhea. No urinary complaints. No headache, dizziness, blurring of vision or any seizure activity. Past Medical History Cardiac Medical History: Reports: Congestive Heart Failure, Coronary Artery Disease, Myocardial Infarction, Hyperlipidema, Hypertension Pulmonary Medical History: Reports: Asthma Endocrine Medical History: Reports: Diabetes Mellitus Type 2 Psychiatric Medical History: Reports: Depression Past Surgical History Past Surgical History: Reports: Cardiac Catheterization, Section, Cholecystectomy, Herniorrhaphy Social History Smoking Status: Unknown if Ever Smoked Frequency of Alcohol Use: None Hx Recreational Drug Use: No Drugs: None Hx Prescription Drug Abuse: No Family History Family History: Reviewed & Not Pertinent Parental Family History Reviewed: Yes Children Family History Reviewed: Yes Sibling(s) Family History Reviewed.: Yes Medication/Allergy Home Medications: Albuterol Sulfate [Albuterol Sulfate 2.5mg/3 mL] 1 vial NEB QIDP PRN 02/24/17 Aspirin [Aspirin 325 mg Tablet] 325 mg PO DAILY 02/24/17 Atorvastatin Calcium [Lipitor 80 mg Tablet] 80 mg PO DAILY 02/24/17 Enalapril Maleate [Vasotec 20 mg Tablet] 20 mg PO DAILY 02/24/17 Furosemide [Lasix 40 mg Tablet] 40 mg PO DAILY 02/24/17 Metformin HCl [Glucophage] 1,000 mg PO BID 02/24/17 Montelukast Sodium [Singulair 10 mg Tablet] 10 mg PO QHS 02/24/17 Amlodipine Besylate [Norvasc 5 mg Tablet] 5 mg PO DAILY #30 tablet 02/27/17 Glipizide [Glucotrol Xl] 10 mg PO BID #60 tab.er.24 02/27/17 Metoprolol Succinate [Toprol Xl 50 mg Tab.sr] 100 mg PO DAILY #30 tab.sr.24h 02/27/17 Baclofen [Baclofen 20 Mg Tablet] 20 mg PO TID #60 tablet 01/24/18 Hydrocodone Bit/Acetaminophen [Hydrocodon-Acetaminophen 5-325] 1 each PO BID #10 tablet 01/24/18 Naproxen [Naprosyn] 500 mg PO BID #30 tablet 01/24/18 Allergies/Adverse Reactions: No Known Allergies Allergy (Verified 02/23/17 19:33) Review of Systems Constitutional: PRESENT: fever(s) Eyes: ABSENT: visual disturbances Ears: ABSENT: hearing changes Cardiovascular: ABSENT: chest pain, dyspnea on exertion, edema, orthropnea, palpitations Respiratory: PRESENT: cough, dyspnea Gastrointestinal: ABSENT: abdominal pain, constipation, diarrhea, hematemesis, hematochezia, nausea, vomiting Genitourinary: ABSENT: dysuria, hematuria Musculoskeletal: ABSENT: joint swelling Integumentary: ABSENT: rash, wounds Neurological: ABSENT: abnormal gait, abnormal speech, confusion, dizziness, focal weakness, syncope Psychiatric: ABSENT: anxiety, depression, homidical ideation, suicidal ideation Endocrine: ABSENT: cold intolerance, heat intolerance, polydipsia, polyuria Hematologic/Lymphatic: ABSENT: easy bleeding, easy bruising Physical Exam Vital Signs: Temp Pulse Resp BP Pulse Ox 35 H 168/87 H 91 L 07/02/18 15:01 07/02/18 15:01 07/02/18 15:01 Intake & Output 07/01/18 07/02/18 07/03/18 06:59 06:59 06:59 Weight 122.47 kg General appearance: PRESENT: mild distress, morbidly obese Eye exam: PRESENT: conjunctiva pink Neck exam: ABSENT: carotid bruit, JVD, lymphadenopathy, thyromegaly Respiratory exam: PRESENT: crackles - Left lower lobe, decreased breath sounds Cardiovascular exam: PRESENT: RRR. ABSENT: diastolic murmur, rubs, systolic murmur Neurological exam: PRESENT: alert, awake, oriented to time, oriented to situ ation Results Laboratory Results: 07/02/18 14:52 07/02/18 14:52 07/02/18 07/02/18 07/02/18 14:52 14:52 14:52 WBC 16.6 H RBC 4.70 Hgb 12.6 Hct 38.7 MCV 82 MCH 26.9 L MCHC 32.6 RDW 16.2 H Plt Count 336 Seg Neutrophils % 90.6 H Lymphocytes % 5.1 L Monocytes % 3.8 Eosinophils % 0.1 Basophils % 0.4 Absolute Neutrophils 15.0 H Absolute Lymphocytes 0.9 Absolute Monocytes 0.6 Absolute Eosinophils 0.0 Absolute Basophils 0.1 Carbonic Acid HCO3/H2CO3 Ratio ABG pH ABG pCO2 ABG pO2 ABG HCO3 ABG O2 Saturation ABG Base Excess FiO2 Sodium 137.8 Potassium 3.8 Chloride 96 L Carbon Dioxide 27 Anion Gap 15 BUN 13 Creatinine 0.50 L Est GFR ( Amer) > 60 Est GFR (Non-Af Amer) > 60 Glucose 313 H Lactic Acid 3.2 H Calcium 9.2 Total Bilirubin 0.6 AST 23 ALT 21 Alkaline Phosphatase 131 H Total Protein 7.7 Albumin 4.1 Urine Color Urine Appearance Urine pH Ur Specific [place] Urine Protein Urine Glucose (UA) Urine Ketones Urine Blood Urine Nitrite Ur Leukocyte Esterase Urine WBC (Auto) Urine RBC (Auto) 07/02/18 07/02/18 15:18 16:18 WBC RBC Hgb Hct MCV MCH MCHC RDW Plt Count Seg Neutrophils % Lymphocytes % Monocytes % Eosinophils % Basophils % Absolute Neutrophils Absolute Lymphocytes Absolute Monocytes Absolute Eosinophils Absolute Basophils Carbonic Acid 1.41 H HCO3/H2CO3 Ratio 18:1 ABG pH 7.37 ABG pCO2 46.7 H ABG pO2 111.1 H ABG HCO3 26.6 H ABG O2 Saturation 97.9 ABG Base Excess 0.9 FiO2 4L Sodium Potassium Chloride Carbon Dioxide Anion Gap BUN Creatinine Est GFR ( Amer) Est GFR (Non-Af Amer) Glucose Lactic Acid Calcium Total Bilirubin AST ALT Alkaline Phosphatase Total Protein Albumin Urine Color YELLOW Urine Appearance SLIGHTLY-CLOUDY Urine pH 5.0 Ur Specific [place] 1.015 Urine Protein 100 H Urine Glucose (UA) >=500 H Urine Ketones TRACE H Urine Blood NEGATIVE Urine Nitrite NEGATIVE Ur Leukocyte Esterase NEGATIVE Urine WBC (Auto) 2 Urine RBC (Auto) 1 07/02/18 14:50 NT-Pro-B Natriuret Pep 183 Impressions: Chest X-Ray 07/02/18 15:53 IMPRESSION: Cardiomegaly. No jennifer pulmonary edema. Assessment and Plan - Diagnosis (1) Sepsis of pulmonary origin Is this a current diagnosis for this admission?: Yes Plan: Patient has tachycardia tachypnea leukocytosis and hypotension. Patient resuscitated with fluid. By the ER attending. (2) Left lower lobe pneumonia Is this a current diagnosis for this admission?: Yes Plan: Patient is going to be started on Levaquin. And will adjust her antibiotic based on her clinical progress and culture results. (3) Type 2 diabetes mellitus Is this a current diagnosis for this admission?: Yes Plan: I will continue her home metformin and put her on sliding scale. (4) Morbid obesity with BMI of 45.0-49.9, adult Is this a current diagnosis for this admission?: Yes Plan: Lifestyle modification advised. (5) Hypertension and hyperlipidemia Is this a current diagnosis for this admission?: Yes Plan: Continue metoprolol amlodipine for hypertension and Lipitor for her hyperlipidemia. (6) History of CHF (congestive heart failure) Is this a current diagnosis for this admission?: Yes Plan: Currently patient does not have any edema and her BNP is 100s 2 which is against CHF. - Inpatient Certification Medical Necessity: Need Close Monitoring Due to Risk of Patient Decompensation, Need for IV Antibiotics
[2018-07-02] MEDS ORDERED: DEXTROSE 50%-WATER 25 GM/50 ML DISP.SYRIN IV PRN ×2 (18:12)
[2018-07-02] MEDS ORDERED: DEXTROSE 40% GEL 15 GM TUBE PO PRN ×2 (18:12)
[2018-07-02] MEDS ORDERED: GLUCAGON,HUMAN RECOMB 1 MG INJ IM PRN (18:12)
[2018-07-02] MEDS ORDERED: ALPRAZOLAM 0.5 MG TABLET PO ONE (18:13)
[2018-07-02] MEDS: ACETAMINOPHEN 325 MG TABLET PO PRN (20:25)
[2018-07-02] MEDS: IPRATROPIUM/ALBUTEROL 0.5-2.5 MG/3 ML AMPUL NEB SCH (20:26)
[2018-07-02] MEDS: ENOXAPARIN SODIUM INJ 40 MG/0.4 ML DISP.SYRIN SUBCUT SCH (20:27)
[2018-07-02] MEDS: INSULIN LISPRO 100 UNIT/ML 3 ML VIAL SUBCUT SCH (22:39)
[2018-07-02] MEDS: ALPRAZOLAM 0.5 MG TABLET PO SCH (22:39)
[2018-07-02] MEDS: FAMOTIDINE 20 MG TABLET PO SCH (22:39)
[2018-07-03] MEDS: IPRATROPIUM/ALBUTEROL 0.5-2.5 MG/3 ML AMPUL NEB SCH ×4 (01:51→20:34)
[2018-07-03] MEDS: ACETAMINOPHEN 325 MG TABLET PO PRN ×2 (04:26→16:35)
[2018-07-03 05:48] LABS: ABSOLUTE BASOPHILS # (AUTO) 0.1 10^3/uL (0.0-0.2); ABSOLUTE LYMPHOCYTES (AUTO) 1.3 10^3/uL (0.5-4.7); ABSOLUTE MONOCYTES (AUTO) 0.8 10^3/uL (0.1-1.4); BASOPHILS % (AUTO) 0.5 % (0-2); EOSINOPHILS % (AUTO) 0.1 % (0-6); HEMATOCRIT 35.2 % (36.0-47.0); HEMOGLOBIN 11.4 g/dL (12.0-15.5); LYMPHOCYTES % (AUTO) 8.4 % (13-45); MEAN CORPUSCULAR HEMOGLOBIN 26.5 pg (27.0-33.4); MEAN CORPUSCULAR HGB CONC 32.3 g/dL (32.0-36.0); MEAN CORPUSCULAR VOLUME 82 fl (80-97); MONOCYTES % (AUTO) 5.5 % (3-13); PLATELET COUNT 298 10^3/uL (150-450); RED BLOOD COUNT 4.29 10^6/uL (3.72-5.28); RED CELL DISTRIBUTION WIDTH 16.5 % (11.5-14.0); SEGMENTED NEUTROPHILS % (AUTO) 85.5 % (42-78); TOTAL CELLS COUNTED % (AUTO) 100 %; WHITE BLOOD COUNT 15.2 10^3/uL (4.0-10.5)
[2018-07-03 06:03] LABS: ALANINE AMINOTRANSFERASE 17 U/L (9-52); ALBUMIN 3.4 g/dL (3.5-5.0); ALKALINE PHOSPHATASE 108 U/L (38-126); ANION GAP 11 (5-19); ASPARTATE AMINO TRANSFERASE 14 U/L (14-36); BILIRUBIN,DIRECT 0.2 mg/dL (0.0-0.4); BILIRUBIN,TOTAL 0.4 mg/dL (0.2-1.3); BLOOD UREA NITROGEN 10 mg/dL (7-20); CALCIUM 8.7 mg/dL (8.4-10.2); CARBON DIOXIDE 29 mmol/L (22-30); CHLORIDE 100 mmol/L (98-107); GLUCOSE 192 mg/dL (75-110); POTASSIUM 4.1 mmol/L (3.6-5.0); SODIUM 139.8 mmol/L (137-145); TOTAL PROTEIN 6.5 g/dL (6.3-8.2)
[2018-07-03] MEDS ORDERED: METFORMIN HCL 500 MG TABLET PO SCH (08:00)
[2018-07-03] MEDS: ALPRAZOLAM 0.5 MG TABLET PO SCH ×2 (09:09→21:12)
[2018-07-03] MEDS: FAMOTIDINE 20 MG TABLET PO SCH ×2 (09:09→21:12)
[2018-07-03] MEDS: INSULIN LISPRO 100 UNIT/ML 3 ML VIAL SUBCUT SCH ×4 (09:09→21:11)
[2018-07-03] MEDS: ENOXAPARIN SODIUM INJ 40 MG/0.4 ML DISP.SYRIN SUBCUT SCH (09:16)
[2018-07-03] MEDS: CEFTRIAXONE SODIUM 1,000 MG in DEXTROSE 5%-WATER 50 ML IV SCH (09:23)
[2018-07-03] MEDS ORDERED: CEFTRIAXONE 1 GM/D5W RTU 50 ML IV SCH (10:00)
--- NOTE | 2018-07-03 11:00 | EKG REPORT ---
SEVERITY:- BORDERLINE ECG - SINUS TACHYCARDIA BORDERLINE T ABNORMALITIES, DIFFUSE LEADS : Confirmed by: Susan Mason 03-Jul-2018 10:59:54
[2018-07-03] MEDS: AZITHROMYCIN 500 MG in DEXTROSE 5%-WATER 250 ML IV SCH (11:05)
--- NOTE | 2018-07-03 14:28 | PDOC PROGRESS REPORT ---
Subjective Progress Note for:: 07/03/18 Subjective:: ROEL MANCIA is a 57 year old female patient with past medical history of coronary artery disease, hypertension, hyperlipidemia, morbid obesity, diabetes mellitus, hypertension, bronchial asthma and CHF is not chief complaint of fever, shortness of breath cough, and anxiety. Reported she has been in her usual baseline state of health up until last night when she started to have the above-mentioned complaints. Her initial blood work shows leukocytosis, elevated lactic acid and her chest x-ray shows left lower lobe infiltrate which is compatible with pneumonia. Patient has had bouts of vomiting without diarrhea. No urinary complaints. No headache, dizziness, blurring of vision or any seizure activity. 07/03/2018: Patient is [place]ic-speaking only. Through japanese interpreter she says she is feeling better already. She is afebrile her white count improved. Cough and shortness of breath has improved. Physical examination: Patient is no acute distress Alert oriented to time place person No anxiety or depression Head: atraumatic normocephalic Pupils: are equal reactive Neck: is supple and trachea is central no lymphadenopathy No pharyngeal erythema or exudates Heart: Regular rate and rhythm Lungs: clear no distress Abdomen: nontender nondistended Neurological exam: unremarkable Musculoskeletal: No joint swelling or effusion chronic lower back pain and tenderness No suicidal or homicidal ideation Assessment and Plan (1) Sepsis of pulmonary origin Is this a current diagnosis for this admission?: Yes Plan: Patient has tachycardia tachypnea leukocytosis and hypotension. Patient resuscitated with fluid. By the ER attending. 07/03/18: Sepsis is improving with antibiotics. (2) Left lower lobe pneumonia Is this a current diagnosis for this admission?: Yes Plan: Patient is going to be started on Levaquin. And will adjust her antibiotic based on her clinical progress and culture results. 07/03/18: Continue ceftriaxone and azithromycin. (3) Type 2 diabetes mellitus Is this a current diagnosis for this admission?: Yes Plan: I will continue her home metformin and put her on sliding scale. 07/03/18: Continue to monitor glucose levels. (4) Morbid obesity with BMI of 45.0-49.9, adult Is this a current diagnosis for this admission?: Yes Plan: Lifestyle modification advised. (5) Hypertension and hyperlipidemia Is this a current diagnosis for this admission?: Yes Plan: Continue metoprolol amlodipine for hypertension and Lipitor for her hyperlipidemia. (6) History of CHF (congestive heart failure) Is this a current diagnosis for this admission?: Yes Plan: Continue home metoprolol Reason For Visit: PNEUMONIA Physical Exam Vital Signs: Temp Pulse Resp BP Pulse Ox 98.2 F 104 H 20 120/60 96 07/03/18 11:09 07/03/18 11:09 07/03/18 11:09 07/03/18 11:09 07/03/18 12:00 Pulse Oximeter Continuous Start: 07/02/18 18:08 Freq: RTQ4 Status: Active Protocol: Document 07/03/18 12:00 HCR (Rec: 07/03/18 13:01 HCR [id number]) Pulse Oximetry Assessment Oxygen Saturation (92-100) 96 Oxygen Flow Rate (L/min) 3 Equipment Usage Equipment Standby Continuous SpO2 Machine # 11 Intake & Output 07/02/18 07/03/18 07/04/18 06:59 06:59 06:59 Intake Total 1772 50 Balance 1772 50 Weight 269 lb 10.005 oz Results Laboratory Results: 07/03/18 04:42 07/03/18 04:42 07/02/18 07/02/18 07/02/18 14:52 14:52 14:52 WBC 16.6 H RBC 4.70 Hgb 12.6 Hct 38.7 MCV 82 MCH 26.9 L MCHC 32.6 RDW 16.2 H Plt Count 336 Seg Neutrophils % 90.6 H Lymphocytes % 5.1 L Monocytes % 3.8 Eosinophils % 0.1 Basophils % 0.4 Absolute Neutrophils 15.0 H Absolute Lymphocytes 0.9 Absolute Monocytes 0.6 Absolute Eosinophils 0.0 Absolute Basophils 0.1 Carbonic Acid HCO3/H2CO3 Ratio ABG pH ABG pCO2 ABG pO2 ABG HCO3 ABG O2 Saturation ABG Base Excess FiO2 Sodium 137.8 Potassium 3.8 Chloride 96 L Carbon Dioxide 27 Anion Gap 15 BUN 13 Creatinine 0.50 L Est GFR ( Amer) > 60 Est GFR (Non-Af Amer) > 60 Glucose 313 H Lactic Acid 3.2 H Calcium 9.2 Total Bilirubin 0.6 AST 23 ALT 21 Alkaline Phosphatase 131 H Total Protein 7.7 Albumin 4.1 Urine Color Urine Appearance Urine pH Ur Specific [place] Urine Protein Urine Glucose (UA) Urine Ketones Urine Blood Urine Nitrite Ur Leukocyte Esterase Urine WBC (Auto) Urine RBC (Auto) 07/02/18 07/02/18 07/02/18 15:18 16:18 19:18 WBC RBC Hgb Hct MCV MCH MCHC RDW Plt Count Seg Neutrophils % Lymphocytes % Monocytes % Eosinophils % Basophils % Absolute Neutrophils Absolute Lymphocytes Absolute Monocytes Absolute Eosinophils Absolute Basophils Carbonic Acid 1.41 H HCO3/H2CO3 Ratio 18:1 ABG pH 7.37 ABG pCO2 46.7 H ABG pO2 111.1 H ABG HCO3 26.6 H ABG O2 Saturation 97.9 ABG Base Excess 0.9 FiO2 4L Sodium Potassium Chloride Carbon Dioxide Anion Gap BUN Creatinine Est GFR ( Amer) Est GFR (Non-Af Amer) Glucose Lactic Acid 3.1 H Calcium Total Bilirubin AST ALT Alkaline Phosphatase Total Protein Albumin Urine Color YELLOW Urine Appearance SLIGHTLY-CLOUDY Urine pH 5.0 Ur Specific [place] 1.015 Urine Protein 100 H Urine Glucose (UA) >=500 H Urine Ketones TRACE H Urine Blood NEGATIVE Urine Nitrite NEGATIVE Ur Leukocyte Esterase NEGATIVE Urine WBC (Auto) 2 Urine RBC (Auto) 1 07/03/18 07/03/18 04:42 04:42 WBC 15.2 H RBC 4.29 Hgb 11.4 L Hct 35.2 L MCV 82 MCH 26.5 L MCHC 32.3 RDW 16.5 H Plt Count 298 Seg Neutrophils % 85.5 H Lymphocytes % 8.4 L Monocytes % 5.5 Eosinophils % 0.1 Basophils % 0.5 Absolute Neutrophils 13.0 H Absolute Lymphocytes 1.3 Absolute Monocytes 0.8 Absolute Eosinophils 0.0 Absolute Basophils 0.1 Carbonic Acid HCO3/H2CO3 Ratio ABG pH ABG pCO2 ABG pO2 ABG HCO3 ABG O2 Saturation ABG Base Excess FiO2 Sodium 139.8 Potassium 4.1 Chloride 100 Carbon Dioxide 29 Anion Gap 11 BUN 10 Creatinine 0.47 L Est GFR ( Amer) > 60 Est GFR (Non-Af Amer) > 60 Glucose 192 H Lactic Acid Calcium 8.7 Total Bilirubin 0.4 AST 14 ALT 17 Alkaline Phosphatase 108 Total Protein 6.5 Albumin 3.4 L Urine Color Urine Appearance Urine pH Ur Specific [place] Urine Protein Urine Glucose (UA) Urine Ketones Urine Blood Urine Nitrite Ur Leukocyte Esterase Urine WBC (Auto) Urine RBC (Auto) 07/02/18 15:18 Clean Catch Midstream Urine Culture - Final Mixed Skin. Possible Pathogen 05/21/19 14:50 NT-Pro-B Natriuret Pep 183 Impressions: Chest X-Ray 07/02/18 15:53 IMPRESSION: Cardiomegaly. No jennifer pulmonary edema.
[2018-07-03] MEDS ORDERED: ALBUTEROL SULFATE HFA (90 MCG/PUFF) 200 PUFF/8.5 GM MDI IH PRN (16:00)
[2018-07-03] MEDS: METFORMIN HCL 500 MG TABLET PO SCH (18:03)
[2018-07-03] MEDS: ATORVASTATIN CALCIUM 40 MG TABLET PO SCH (18:04)
[2018-07-03 19:07] LABS: ANION GAP 11 (5-19); BLOOD UREA NITROGEN 10 mg/dL (7-20); CALCIUM 8.9 mg/dL (8.4-10.2); CARBON DIOXIDE 30 mmol/L (22-30); CHLORIDE 97 mmol/L (98-107); GLUCOSE 232 mg/dL (75-110); POTASSIUM 4.2 mmol/L (3.6-5.0); SODIUM 138.3 mmol/L (137-145)
[2018-07-03] MEDS ORDERED: (PENDING PHARMACY ID) (Fluticasone/Salmeterol 1 PUFF) IH SCH (22:00)
[2018-07-04] MEDS: ACETAMINOPHEN 325 MG TABLET PO PRN ×2 (00:37→13:57)
[2018-07-04] MEDS: IPRATROPIUM/ALBUTEROL 0.5-2.5 MG/3 ML AMPUL NEB SCH ×4 (01:44→20:46)
[2018-07-04 05:30] LABS: HEMATOCRIT 35.6 % (36.0-47.0); HEMOGLOBIN 11.4 g/dL (12.0-15.5); MEAN CORPUSCULAR HEMOGLOBIN 26.5 pg (27.0-33.4); MEAN CORPUSCULAR HGB CONC 32.1 g/dL (32.0-36.0); MEAN CORPUSCULAR VOLUME 82 fl (80-97); PLATELET COUNT 267 10^3/uL (150-450); RED BLOOD COUNT 4.32 10^6/uL (3.72-5.28); RED CELL DISTRIBUTION WIDTH 16.3 % (11.5-14.0)
[2018-07-04] MEDS: INSULIN LISPRO 100 UNIT/ML 3 ML VIAL SUBCUT SCH ×4 (09:42→21:03)
[2018-07-04] MEDS: ALPRAZOLAM 0.5 MG TABLET PO SCH ×2 (09:44→21:03)
[2018-07-04] MEDS: METFORMIN HCL 500 MG TABLET PO SCH ×2 (09:45→21:04)
[2018-07-04] MEDS: FAMOTIDINE 20 MG TABLET PO SCH ×2 (09:46→21:03)
[2018-07-04] MEDS: CEFTRIAXONE SODIUM 1,000 MG in DEXTROSE 5%-WATER 50 ML IV SCH (09:47)
[2018-07-04] MEDS: METOPROLOL SUCCINATE 50 MG TAB.SR.24H PO SCH (09:47)
[2018-07-04] MEDS: AZITHROMYCIN 500 MG in DEXTROSE 5%-WATER 250 ML IV SCH (09:48)
[2018-07-04] MEDS: ENOXAPARIN SODIUM INJ 40 MG/0.4 ML DISP.SYRIN SUBCUT SCH (09:49)
[2018-07-04] MEDS: FLUTICASONE/VILANTEROL 200-25 MCG/DOSE IH SCH (09:53)
[2018-07-04] MEDS: AMLODIPINE BESYLATE 5 MG TABLET PO SCH (12:27)
[2018-07-04] MEDS: LOSARTAN POTASSIUM 50 MG TABLET PO SCH (12:29)
--- NOTE | 2018-07-04 14:46 | PDOC PROGRESS REPORT ---
Subjective Progress Note for:: 07/04/18 Subjective:: ROEL MANCIA is a 57 year old female patient with past medical history of coronary artery disease, hypertension, hyperlipidemia, morbid obesity, diabetes mellitus, hypertension, bronchial asthma and CHF is not chief complaint of fever, shortness of breath cough, and anxiety. Reported she has been in her usual baseline state of health up until last night when she started to have the above-mentioned complaints. Her initial blood work shows leukocytosis, elevated lactic acid and her chest x-ray shows left lower lobe infiltrate which is compatible with pneumonia. Patient has had bouts of vomiting without diarrhea. No urinary complaints. No headache, dizziness, blurring of vision or any seizure activity. 07/03/2018: Patient is [place]ic-speaking only. Through courtesy van driver she says she is feeling better already. She is afebrile her white count improved. Cough and shortness of breath has improved. 07/04/2018: Patient was seen and examined. Family at bedside. She is feeling better in general. But she is still complaining of dizziness and lightheadedness when she moves from certain positions. She mentioned that she has purulent discharge from her right ear. She also has low energy and anxiety. She denies cough or shortness of breath. Physical examination: Patient is no acute distress Alert oriented to time place person No anxiety or depression Head: atraumatic normocephalic Ears: Pupils: are equal reactive Neck: is supple and trachea is central no lymphadenopathy No pharyngeal erythema or exudates Heart: Regular rate and rhythm Lungs: clear no distress Abdomen: nontender nondistended Neurological exam: unremarkable Musculoskeletal: No joint swelling or effusion chronic lower back pain and tenderness No suicidal or homicidal ideation Assessment and Plan (1) Sepsis Is this a current diagnosis for this admission?: Yes Plan: Patient has tachycardia tachypnea leukocytosis and hypotension. Patient resuscitated with fluid. By the ER attending. 07/03/18: Sepsis is improving with antibiotics. (2) Purulent otitis media Is this a current diagnosis for this admission?: Yes Plan: Patient is going to be started on Levaquin. And will adjust her antibiotic based on her clinical progress and culture results. 07/03/18: Continue ceftriaxone and azithromycin. 07/04/2018: Patient was initially thought to have pneumonia but x-ray is here. On exam she has purulent otitis media. Will get CT scan to rule out mastoiditis. Switch Rocephin to Unasyn. (3) Type 2 diabetes mellitus Is this a current diagnosis for this admission?: Yes Plan: I will continue her home metformin and put her on sliding scale. 07/03/18: Continue to monitor glucose levels. (4) Morbid obesity with BMI of 45.0-49.9, adult Is this a current diagnosis for this admission?: Yes Plan: Lifestyle modification advised. (5) Hypertension and hyperlipidemia Is this a current diagnosis for this admission?: Yes Plan: Continue metoprolol amlodipine for hypertension and Lipitor for her hyperlipidemia. (6) History of CHF (congestive heart failure) Is this a current diagnosis for this admission?: Yes Plan: Continue home metoprolol Reason For Visit: PNEUMONIA Physical Exam Vital Signs: Temp Pulse Resp BP Pulse Ox 98.4 F 93 20 102/56 L 99 07/04/18 11:06 07/04/18 14:04 07/04/18 14:04 07/04/18 11:06 07/04/18 14:04 Pulse Oximeter Continuous Start: 07/02/18 18:08 Freq: RTQ4 Status: Active Protocol: Document 07/04/18 12:00 [facility] (Rec: 07/04/18 12:38 [facility] [id number]) Pulse Oximetry Assessment Oxygen Saturation (92-100) 99 Oxygen Flow Rate (L/min) 4 Oxygen Delivery Method Nasal Cannula Fraction of Inspired Oxygen (FIO2) 36 Equipment Usage Equipment in Use Continuous SpO2 Machine # 11 Intake & Output 07/03/18 07/04/18 07/05/18 06:59 06:59 06:59 Intake Total 1772 1488 480 Balance 1772 1488 480 Weight 269 lb 10.005 oz 242 lb 4.608 oz Results Laboratory Results: 07/04/18 04:30 07/03/18 18:17 07/03/18 07/04/18 18:17 04:30 WBC 15.0 H RBC 4.32 Hgb 11.4 L Hct 35.6 L MCV 82 MCH 26.5 L MCHC 32.1 RDW 16.3 H Plt Count 267 Sodium 138.3 Potassium 4.2 Chloride 97 L Carbon Dioxide 30 Anion Gap 11 BUN 10 Creatinine 0.53 Est GFR ( Amer) > 60 Est GFR (Non-Af Amer) > 60 Glucose 232 H Calcium 8.9 07/02/18 15:18 Clean Catch Midstream Urine Culture - Final Mixed Skin. Possible Pathogen 07/02/18 14:50 NT-Pro-B Natriuret Pep 183 Impressions: Chest X-Ray 07/02/18 15:53 IMPRESSION: Cardiomegaly. No jennifer pulmonary edema. Assessment and Plan - Diagnosis (1) Sepsis Is this a current diagnosis for this admission?: Yes (2) Morbid obesity Is this a current diagnosis for this admission?: Yes (3) History of CHF (congestive heart failure) Is this a current diagnosis for this admission?: Yes (4) Hypertension and hyperlipidemia Is this a current diagnosis for this admission?: Yes (5) Type 2 diabetes mellitus Is this a current diagnosis for this admission?: Yes (6) Otitis media Is this a current diagnosis for this admission?: Yes
--- NOTE | 2018-07-04 15:49 | RADIOLOGY REPORT (SQ) ---
EXAM DESCRIPTION: CT HEAD WITHOUT COMPLETED DATE/TIME: 07/04/2018 3:14 pm REASON FOR STUDY: purulent otitis media, dizziness COMPARISON: None. TECHNIQUE: Axial images acquired through the brain without intravenous contrast. Images reviewed wi th bone, brain and subdural windows. Additional sagittal and coronal reconstructions were generated. Images stored on PACS. All CT scanners at this facility use dose modulation, iterative reconstruction, and/or weight based d osing when appropriate to reduce radiation dose to as low as reasonably achievable (ALARA). [facility]: Dose Right [facility]: CareDose [facility]: Dose Right [facility]: Teradose 4D [facility]: Hypori RADIATION DOSE: CT Rad equipment meets quality standard of care and radiation dose reduction techniq ues were employed. CTDIvol: 48.7 mGy. DLP: 955 mGy-cm. mGy. LIMITATIONS: None. FINDINGS: VENTRICLES: Prominent. CEREBRUM: No masses. No hemorrhage. No midline shift. Areas of low density in the white matter mos t likely due to chronic micro-vascular ischemic change. No evidence for acute infarction. CEREBELLUM: No masses. No hemorrhage. No alteration of density. No evidence for acute infarction. EXTRAAXIAL SPACES: Mild age-related involutional change. No fluid collections. No masses. ORBITS AND GLOBE: No intra- or extraconal masses. Normal contour of globe without masses. CALVARIUM: No fracture. PARANASAL SINUSES: Fluid left sphenoid sinus. SOFT TISSUES: No mass or hematoma. OTHER: No other significant finding. IMPRESSION: MILD CHRONIC CHANGES OF ATROPHY AND MICROVASCULAR ISCHEMIA. NO ACUTE PROCESS. EVIDENCE OF ACUTE STROKE: NO. TECHNICAL DOCUMENTATION: JOB ID: [id number] Quality ID # [id number]: Final reports with documentation of one or more dose reduction techniques (e.g., Au tomated exposure control, adjustment of the mA and/or kV according to patient size, use of iterative reconstruction technique) 2010 [employer]- All Rights Reserved Reading location - IP/workstation name: [email or web address]
[2018-07-04 16:04] LABS: ANION GAP 10 (5-19); BLOOD UREA NITROGEN 8 mg/dL (7-20); CALCIUM 8.8 mg/dL (8.4-10.2); CARBON DIOXIDE 31 mmol/L (22-30); CHLORIDE 99 mmol/L (98-107); GLUCOSE 220 mg/dL (75-110); POTASSIUM 4.4 mmol/L (3.6-5.0); SODIUM 140.3 mmol/L (137-145)
[2018-07-04] MEDS ORDERED: AMPICILLIN SOD/SULBACTAM 3 GM VIAL IV SCH (18:00)
[2018-07-04] MEDS: ATORVASTATIN CALCIUM 40 MG TABLET PO SCH (21:05)
[2018-07-04] MEDS: AMPICILLIN SODIUM/SULBACTAM NA 3 GM in NORMAL SALINE 100 ML IV SCH ×2 (21:05→23:08)
[2018-07-05] MEDS: ACETAMINOPHEN 325 MG TABLET PO PRN (01:20)
[2018-07-05] MEDS: IPRATROPIUM/ALBUTEROL 0.5-2.5 MG/3 ML AMPUL NEB SCH ×3 (02:41→13:50)
[2018-07-05 04:59] LABS: ABSOLUTE EOSINOPHILS # (AUTO) 0.3 10^3/uL (0.0-0.6); ABSOLUTE LYMPHOCYTES (AUTO) 2.1 10^3/uL (0.5-4.7); ABSOLUTE MONOCYTES (AUTO) 0.8 10^3/uL (0.1-1.4); ABSOLUTE NEUT (AUTO) 6.3 10^3/uL (1.7-8.2); BASOPHILS % (AUTO) 0.5 % (0-2); EOSINOPHILS % (AUTO) 3.3 % (0-6); HEMATOCRIT 34.5 % (36.0-47.0); HEMOGLOBIN 11.1 g/dL (12.0-15.5); LYMPHOCYTES % (AUTO) 21.9 % (13-45); MEAN CORPUSCULAR HEMOGLOBIN 26.7 pg (27.0-33.4); MEAN CORPUSCULAR HGB CONC 32.2 g/dL (32.0-36.0); MEAN CORPUSCULAR VOLUME 83 fl (80-97); MONOCYTES % (AUTO) 8.5 % (3-13); PLATELET COUNT 262 10^3/uL (150-450); RED BLOOD COUNT 4.16 10^6/uL (3.72-5.28); RED CELL DISTRIBUTION WIDTH 15.9 % (11.5-14.0); SEGMENTED NEUTROPHILS % (AUTO) 65.8 % (42-78); TOTAL CELLS COUNTED % (AUTO) 100 %; WHITE BLOOD COUNT 9.6 10^3/uL (4.0-10.5)
[2018-07-05] MEDS: AMPICILLIN SODIUM/SULBACTAM NA 3 GM in NORMAL SALINE 100 ML IV SCH ×3 (05:20→17:15)
[2018-07-05] MEDS: INSULIN LISPRO 100 UNIT/ML 3 ML VIAL SUBCUT SCH ×3 (07:50→17:20)
[2018-07-05] MEDS: ALPRAZOLAM 0.5 MG TABLET PO SCH (09:11)
[2018-07-05] MEDS: FAMOTIDINE 20 MG TABLET PO SCH (09:11)
[2018-07-05] MEDS: METOPROLOL SUCCINATE 50 MG TAB.SR.24H PO SCH (09:11)
[2018-07-05] MEDS: METFORMIN HCL 500 MG TABLET PO SCH ×2 (09:11→17:15)
[2018-07-05] MEDS: LOSARTAN POTASSIUM 50 MG TABLET PO SCH (09:11)
[2018-07-05] MEDS: ENOXAPARIN SODIUM INJ 40 MG/0.4 ML DISP.SYRIN SUBCUT SCH (09:12)
[2018-07-05] MEDS: FLUTICASONE/VILANTEROL 200-25 MCG/DOSE IH SCH (09:12)
[2018-07-05] MEDS: AMLODIPINE BESYLATE 5 MG TABLET PO SCH (09:12)
[2018-07-05] MEDS: AZITHROMYCIN 500 MG in DEXTROSE 5%-WATER 250 ML IV SCH (09:13)
[2018-07-05] MEDS ORDERED: MULTIVITAMIN TABLET PO SCH (10:00)
--- NOTE | 2018-07-05 10:27 | PDOC DISCHARGE SUMMARY ---
General - Admit/Disc Date/PCP Admission Date/Primary Care Provider: 07/02/18 17:58 Discharge Date: 07/05/18 - Discharge Diagnosis (1) Sepsis Is this a current diagnosis for this admission?: Yes (2) Morbid obesity Is this a current diagnosis for this admission?: Yes (3) History of CHF (congestive heart failure) Is this a current diagnosis for this admission?: Yes (4) Hypertension and hyperlipidemia Is this a current diagnosis for this admission?: Yes (5) Type 2 diabetes mellitus Is this a current diagnosis for this admission?: Yes (6) Otitis media Is this a current diagnosis for this admission?: Yes - Additional Information Discharge Diet: Cardiac, Diabetic Discharge Activity: Activity As Tolerated Prescriptions: Amoxicillin/Potassium Clav [Augmentin Xr 1,000-62.5 Tab] 1 each PO BID #16 tab.er.12h Furosemide [Lasix 20 mg Tablet] 20 mg PO QAM #30 tablet Glipizide [Glucotrol 5 mg Tablet] 5 mg PO DAILY #30 tablet Ipratropium/Albuterol Sulfate [Combivent Respimat 4 gm Mdi] 1 puff IH Q4HP PRN #1 aer.w.adap PRN Reason: Home Medications: Albuterol Sulfate [Albuterol Sulfate Hfa] 2 puff IH Q6HP PRN 07/02/18 Amlodipine Besylate [Norvasc 5 mg Tablet] 5 mg PO DAILY 07/02/18 Atorvastatin Calcium [Lipitor 40 mg Tablet] 40 mg PO QPM 07/02/18 Fluticasone/Salmeterol [Advair 250-50 Diskus 14 Dose/Diskus] 1 puff IH Q12 07/02/18 Losartan Potassium [Cozaar 100 mg Tablet] 100 mg PO DAILY 07/02/18 Metformin HCl [Glucophage] 1,000 mg PO BID 07/02/18 Metoprolol Succinate [Toprol Xl 50 mg Tab.sr] 100 mg PO DAILY 07/02/18 Acetaminophen [Tylenol 325 mg Tablet] 650 mg PO Q8HP PRN tablet 07/05/18 Amoxicillin/Potassium Clav [Augmentin Xr 1,000-62.5 Tab] 1 each PO BID #16 tab.er.12h 07/05/18 Furosemide [Lasix 20 mg Tablet] 20 mg PO QAM #30 tablet 07/05/18 Glipizide [Glucotrol 5 mg Tablet] 5 mg PO DAILY #30 tablet 07/05/18 Ipratropium/Albuterol Sulfate [Combivent Respimat 4 gm Mdi] 1 puff IH Q4HP PRN #1 aer.w.adap 07/05/18 Multivitamin [Tab-A-Olivia (Multiple Vitamin) Tablet] 1 tab PO DAILY tablet 07/05/18 History of Present Illness History of Present Illness: ROEL MANCIA is a 57 year old female Hospital Course Hospital Course: ROEL MANCIA is a 57 year old female patient with past medical history of coronary artery disease, hypertension, hyperlipidemia, morbid obesity, diabetes mellitus, hypertension, bronchial asthma and CHF is not chief complaint of fever, shortness of breath cough, and anxiety. Reported she has been in her usual baseline state of health up until last night when she started to have the above-mentioned complaints. Her initial blood work shows leukocytosis, elevated lactic acid and her chest x-ray shows left lower lobe infiltrate which is compatible with pneumonia. Patient has had bouts of vomiting without diarrhea. No urinary complaints. No headache, dizziness, blurring of vision or any seizure activity. 07/03/2018: Patient is [place]ic-speaking only. Through chief of production she says she is feeling better already. She is afebrile her white count improved. Cough and shortness of breath has improved. 07/04/2018: Patient was seen and examined. Family at bedside. She is feeling better in general. But she is still complaining of dizziness and lightheadedness when she moves from certain positions. She mentioned that she has purulent discharge from her right ear. She also has low energy and anxiety. She denies cough or shortness of breath. Physical examination: Patient is no acute distress Alert oriented to time place person No anxiety or depression Head: atraumatic normocephalic Ears: Pupils: are equal reactive Neck: is supple and trachea is central no lymphadenopathy No pharyngeal erythema or exudates Heart: Regular rate and rhythm. mild edema Lungs: clear no distress Abdomen: nontender nondistended Neurological exam: unremarkable Musculoskeletal: No joint swelling or effusion chronic lower back pain and tenderness No suicidal or homicidal ideation Assessment and Plan (1) Sepsis Is this a current diagnosis for this admission?: Yes Plan: Patient has tachycardia tachypnea leukocytosis and hypotension. Patient resuscitated with fluid. By the ER attending. 07/03/18: Sepsis is improving with antibiotics. (2) Purulent otitis media Is this a current diagnosis for this admission?: Yes Plan: Patient is going to be started on Levaquin. And will adjust her antibiotic based on her clinical progress and culture results. 07/03/18: Continue ceftriaxone and azithromycin. 07/04/2018: Patient was initially thought to have pneumonia but x-ray is here. On exam she has purulent otitis media. Will get CT scan to rule out mastoiditis. Switch Rocephin to Unasyn. (3) Type 2 diabetes mellitus Is this a current diagnosis for this admission?: Yes Plan: I will continue her home metformin and put her on sliding scale. 07/03/18: Continue to monitor glucose levels. (4) Morbid obesity with BMI of 45.0-49.9, adult Is this a current diagnosis for this admission?: Yes Plan: Lifestyle modification advised. (5) Hypertension and hyperlipidemia Is this a current diagnosis for this admission?: Yes Plan: Continue metoprolol amlodipine for hypertension and Lipitor for her hyperlipidemia. (6) History of CHF (congestive heart failure) Is this a current diagnosis for this admission?: Yes Plan: Continue home metoprolol Patient is doing very well. For the first time she is asking to go home. Will discharge on course of oral Augmentin. We will add glipizide to metformin since hemoglobin A1c is 10.8. We advised her regarding cardiac and diabetic diet. Her white count is normal now. She is afebrile. We will give her low-dose of Lasix due to edema and history of CHF. She will go home on oxygen hopefully temporarily. She is scheduled to follow-up with her primary care physician next week. Time spent on discharge 40 minutes. Physical Exam Vital Signs: Temp Pulse Resp BP Pulse Ox 97.9 F 104 H 18 142/69 H 96 07/05/18 07:16 07/05/18 07:50 07/05/18 07:50 07/05/18 06:20 07/05/18 07:50 Pulse Oximeter Continuous Start: 07/02/18 18:08 Freq: RTQ4 Status: Active Protocol: Document 07/05/18 07:50 [facility] (Rec: 07/05/18 08:44 [facility] [id number]) Pulse Oximetry Assessment Oxygen Saturation (92-100) 94 Oxygen Flow Rate (L/min) 4 Oxygen Delivery Method Nasal Cannula Fraction of Inspired Oxygen (FIO2) 36 Equipment Usage Equipment in Use Continuous SpO2 Machine # 11 Intake & Output 07/04/18 07/05/18 07/06/18 06:59 06:59 06:59 Intake Total 1488 1360 Balance 1488 1360 Weight 242 lb 4.608 oz 236 lb 15.951 oz Results Laboratory Results: 07/05/18 03:55 07/04/18 14:54 07/04/18 07/05/18 14:54 03:55 WBC 9.6 RBC 4.16 Hgb 11.1 L Hct 34.5 L MCV 83 MCH 26.7 L MCHC 32.2 RDW 15.9 H Plt Count 262 Seg Neutrophils % 65.8 Lymphocytes % 21.9 Monocytes % 8.5 Eosinophils % 3.3 Basophils % 0.5 Absolute Neutrophils 6.3 Absolute Lymphocytes 2.1 Absolute Monocytes 0.8 Absolute Eosinophils 0.3 Absolute Basophils 0.0 Sodium 140.3 Potassium 4.4 Chloride 99 Carbon Dioxide 31 H Anion Gap 10 BUN 8 Creatinine 0.45 L Est GFR ( Amer) > 60 Est GFR (Non-Af Amer) > 60 Glucose 220 H Calcium 8.8 07/02/18 14:50 NT-Pro-B Natriuret Pep 183 Impressions: Chest X-Ray 07/02/18 15:53 IMPRESSION: Cardiomegaly. No jennifer pulmonary edema. Head CT 07/04/18 00:00 IMPRESSION: MILD CHRONIC CHANGES OF ATROPHY AND MICROVASCULAR ISCHEMIA. NO ACUTE PROCESS. EVIDENCE OF ACUTE STROKE: NO. Qualifiers - * PATIENT BEING DISCHARGED WITH ANY OF THE FOLLOWING DIAGNOSIS: No Acute Heart Failure Is this a Heart Failure Patient?: No
[2018-07-05] MEDS ORDERED: BENZOCAINE/MENTHOL SORE THROAT LOZENGE BUCCAL PRN (12:58)
[2018-07-05] MEDS ORDERED: GUAIFENESIN SYRP 200 MG/10 ML UDC PO PRN (12:58)
[2018-07-05 15:31] VITALS: BP 120/67
[2018-07-05] MEDS: ATORVASTATIN CALCIUM 40 MG TABLET PO SCH (17:15)
== END 2018-07-05 18:20 | disposition home or self-care (01) | DRG 872 ==
LOC: ER 14:27 → EH 17:58 → 3N 22:03
PROVIDERS: ADMIT Internal Medicine; ATTEND Internal Medicine
DX: A41.9 Sepsis, unspecified organism (principal); Z68.41 Body mass index [BMI] 40.0-44.9, adult; H66.41 Suppurative otitis media, unspecified, right ear; I25.10 Atherosclerotic heart disease of native coronary artery without angina pectoris; E11.9 Type 2 diabetes mellitus without complications; E66.01 Morbid (severe) obesity due to excess calories; I10 Essential (primary) hypertension; Z90.49 Acquired absence of other specified parts of digestive tract; Z79.84 Long term (current) use of oral hypoglycemic drugs; Z79.82 Long term (current) use of aspirin; Z79.899 Other long term (current) drug therapy
CPT/HCPCS: 36415; 70450; 71046; 80048; 80053; 81001; 82803; 82962; 83036; 83605; 83880; 85025; 85027; 85610; 87040; 87070; 87077; 87086; 87088; 87186; 87205; 93005; 93010; 94640; 94762; 96365; 96366; 96368; 99285; J0295; J0456; J0696; J1650; J1815; J3475; J3490; J7030; J7050; J7060; J7620

== ENCOUNTER 2019-07-16 13:32 | Emergency (ER) | payer SELFPAY ==
--- NOTE | 2019-07-16 14:33 | ER Document Report ---
ED General - General Chief Complaint: Asthma Exacerbation Stated Complaint: SHORT OF BREATH Time Seen by Provider: 07/16/19 14:08 TRAVEL OUTSIDE OF THE [place] IN LAST 30 DAYS: No - HPI Notes: Working this is a 58-year-old female who presents to the emergency department for evaluation of shortness of breath. Is been going on for the last 3 or 4 days, but got worse today. She went to her primary care provider at [facility], who took an x-ray and told her she was "full of fluid." She comes here for further evaluation. She has a history of CHF. She admits to gaining approximately 12 pounds since last time she weighed herself. She has been taking all of her medications as prescribed. She denies any orthopnea or paroxysmal nocturnal dyspnea. She states she has some pain in her back, primarily with deep breaths. She said no fevers or chills. No coughing. - Related Data Allergies/Adverse Reactions: No Known Allergies Allergy (Verified 07/16/19 14:04) Home Medications: Lasix 40 mg daily, Norvasc 5 mg daily, atorvastatin 40 mg daily, losartan 50 mg daily, glipizide ER 5 mg daily, metoprolol 50 mg daily, Singulair 10 mg daily, metformin 1 g twice a day, albuterol nebulizer as needed Past Medical History - General Information source: Patient, [facility] Records - Social History Smoking Status: Never Smoker Chew tobacco use (# tins/day): No Frequency of alcohol use: None Drug Abuse: None Family History: Reviewed & Not Pertinent Patient has homicidal ideation: No - Past Medical History Cardiac Medical History: Reports: Hx Congestive Heart Failure, Hx Coronary Artery Disease, Hx Heart Attack, Hx Hypercholesterolemia, Hx Hypertension Pulmonary Medical History: Reports: Hx Asthma Endocrine Medical History: Reports: Hx Diabetes Mellitus Type 2 Renal/ Medical History: Denies: Hx Peritoneal Dialysis Psychiatric Medical History: Reports: Hx Depression Past Surgical History: Reports: Hx Cardiac Catheterization, Hx Section, Hx Cholecystectomy, Hx Herniorrhaphy - Immunizations Hx Diphtheria, Pertussis, Tetanus Vaccination: Yes Review of Systems - Review of Systems Cardiovascular: See HPI Respiratory: See HPI Musculoskeletal: See HPI -: Yes All other systems reviewed and negative Physical Exam - Vital signs Vitals: Pulse Ox 86 L 07/16/19 13:41 - Notes Notes: This is an obese 58-year-old female who appears her stated age in a moderate amount of distress. She is tachypneic with conversational dyspnea. Vital signs reviewed, please refer to chart. Head is normocephalic, atraumatic. Pupils equal round, reactive to light. Neck is supple without meningismus. Heart is regular rate and rhythm. Lungs reveal significant rales. Abdomen is obese, she has 2+ pitting edema to the thigh. Soft, nontender, normoactive bowel sounds throughout. Extremities without cyanosis, clubbing. Posterior calves are non tender. Peripheral pulses are equal. Skin is warm and dry. Patient is awake, alert, neurological exam is nonfocal. Course - Re-evaluation Re-evalutation: 07/16/19 14:32 Patient presents to the emergency department for evaluation. She has a history of COPD, is on oxygen, approximately 1/2 L per nasal cannula. She was placed on 2 L of oxygen here. I am primarily concerned that the patient is having congestive heart failure, particularly given her edema and her weight gain. She is moderately hypertensive. Decision was made to place the patient on a nitroglycerin drip. Awaiting renal function to find out appropriate Lasix dose, but will likely diurese as well. Patient is stable at this time, we will continue to monitor. 07/16/19 17:13 Patient feeling slightly improved when I initially reevaluated her but on the second time she had been up to the bathroom without oxygen. She was placed back on oxygen, placed in upright position. On exam she does not sound as wet, but she does continue to have diminished breath sounds. It is difficult to say if this is secondary to her asthma or her body habitus. I did order Solu-Medrol, DuoNeb. She is central vascular congestion on her chest x-ray, but her proBNP is not remarkable. I will give her a low-dose Lasix, given her clinical presentation. Nitroglycerin drip will be discontinued at this time. We will assess as to whether the patient can be discharged home. 07/16/19 19:40 Patient is feeling much better. She would like to go home. I am not opposed to this at this time. Her chest x-ray showed some mild pulmonary vascular congestion, but she was treated with Lasix. Her proBNP was actually normal. I believe this is mostly asthma at this time. She has a nebulizer at home. I will send her with low-dose steroids, she was warned about the fact that this will increase her blood sugar. I told her she should be seen by her primary care provider tomorrow. I also told her that if any changes should occur she needs to come right back. She voiced understanding to this and was discharged. - Vital Signs Vital signs: Temp Pulse Resp BP Pulse Ox 97.7 F 33 H 154/91 H 91 L 07/16/19 21:01 07/16/19 20:26 07/16/19 20:26 07/16/19 20:26 - Laboratory Result Diagrams: 07/16/19 13:51 07/16/19 16:04 Laboratory results interpreted by me: 07/16/19 07/16/19 07/16/19 13:51 14:20 16:04 WBC 11.1 H MCH 26.4 L RDW 17.9 H Carbon Dioxide 32 H Glucose 200 H Urine Protein 100 H Urine Ascorbic Acid 20 H - Diagnostic Test Radiology reviewed: Image reviewed, Reports reviewed Radiology results interpreted by me: 07/16/19 19:41 Chest X-Ray 07/16/19 14:26 IMPRESSION: Stable enlarged cardiac silhouette and central vascular congestion without overt pulmonary edema or significant effusion. - EKG Interpretation by Me Additional EKG results interpreted by me: 07/16/19 19:41 Sinus tachycardia with a rate of 112 bpm. Normal axis and intervals. Nonspecific ST changes, but no acute changes concerning for ischemia or infarction. No significant change compared to prior study of July 02, 2018. Discharge - Discharge Clinical Impression: Pulmonary vascular congestion Dyspnea Qualifiers: Dyspnea type: shortness of breath Qualified Code(s): R06.02 - Shortness of breath Acute asthma exacerbation Qualifiers: Asthma severity: moderate Asthma persistence: unspecified Qualified Code(s): J45.901 - Unspecified asthma with (acute) exacerbation Condition: Stable Disposition: HOME, SELF-CARE Instructions: Asthma ([facility]), Inhaled Bronchodilators ([facility]) Additional Instructions: Please use your nebulizer at home as prescribed. Take the prednisone as directed starting tomorrow, please note this will increase your blood sugar. Follow-up with your primary care provider tomorrow. If you develop increased difficulty breathing, or any other new or concerning symptoms, please return immediately to the emergency department for reevaluation. Prescriptions: Prednisone [Deltasone 20 mg Tablet] 40 mg PO DAILY #6 tablet
[2019-07-16 14:38] LABS: ABSOLUTE BASOPHILS # (AUTO) 0.1 10^3/uL (0.0-0.2); ABSOLUTE EOSINOPHILS # (AUTO) 0.3 10^3/uL (0.0-0.6); ABSOLUTE LYMPHOCYTES (AUTO) 2.5 10^3/uL (0.5-4.7); ABSOLUTE MONOCYTES (AUTO) 0.7 10^3/uL (0.1-1.4); ABSOLUTE NEUT (AUTO) 7.5 10^3/uL (1.7-8.2); BASOPHILS % (AUTO) 0.9 % (0-2); EOSINOPHILS % (AUTO) 2.5 % (0-6); HEMATOCRIT 40.9 % (36.0-47.0); HEMOGLOBIN 13.3 g/dL (12.0-15.5); LYMPHOCYTES % (AUTO) 22.5 % (13-45); MEAN CORPUSCULAR HEMOGLOBIN 26.4 pg (27.0-33.4); MEAN CORPUSCULAR HGB CONC 32.5 g/dL (32.0-36.0); MEAN CORPUSCULAR VOLUME 81 fl (80-97); MONOCYTES % (AUTO) 6.5 % (3-13); PLATELET COUNT 392 10^3/uL (150-450); RED BLOOD COUNT 5.03 10^6/uL (3.72-5.28); RED CELL DISTRIBUTION WIDTH 17.9 % (11.5-14.0); SEGMENTED NEUTROPHILS % (AUTO) 67.6 % (42-78); TOTAL CELLS COUNTED % (AUTO) 100 %; VENOUS BLOOD BASE EXCESS 3.6 mmol/L; VENOUS BLOOD HCO3 30.9 mmol/L (20-32); VENOUS BLOOD PCO2 58.7 mmHg (35-63); VENOUS BLOOD PH 7.34 (7.30-7.42); WHITE BLOOD COUNT 11.1 10^3/uL (4.0-10.5)
[2019-07-16] MEDS: NITROGLYCERIN/D5W 50 MG/250 ML RTUINJ IV PRN ×2 (14:47→16:19)
[2019-07-16 14:48] LABS: INTERNATIONAL RATION (INR) 0.94; PROTHROMBIN TIME 12.6 SEC (11.4-15.4)
[2019-07-16 14:55] LABS: APPEARANCE,URINE CLEAR; BILIRUBIN,URINE NEGATIVE (NEGATIVE); COLOR,URINE YELLOW; GLUCOSE, URINE NEGATIVE (NEGATIVE); KETONES,URINE NEGATIVE (NEGATIVE); PROTEIN,URINE 100 mg/dL (NEGATIVE); URINE SPECIFIC GRAVITY 1.015; UROBILINOGEN,URINE NEGATIVE mg/dL (<2.0)
--- NOTE | 2019-07-16 15:22 | RADIOLOGY REPORT (SQ) ---
EXAM DESCRIPTION: CHEST SINGLE VIEW IMAGES COMPLETED DATE/TIME: 07/16/2019 3:13 pm REASON FOR STUDY: dyspnea COMPARISON: 07/02/2018. EXAM PARAMETERS: NUMBER OF VIEWS: One view. TECHNIQUE: Single frontal radiographic view of the chest acquired. RADIATION DOSE: NA LIMITATIONS: None. FINDINGS: LUNGS AND PLEURA: No focal airspace disease, pleural effusion or pneumothorax. MEDIASTINUM AND HILAR STRUCTURES: No masses. Contour normal. HEART AND VASCULAR STRUCTURES: Enlarged cardiac silhouette. Central vascular congestion. BONES: No acute findings. HARDWARE: None in the chest. OTHER: No other significant finding. IMPRESSION: Stable enlarged cardiac silhouette and central vascular congestion without overt pulmona ry edema or significant effusion. TECHNICAL DOCUMENTATION: JOB ID: [id number] 2010 [employer]- All Rights Reserved Reading location - IP/workstation name: [email or web address]
[2019-07-16 16:39] LABS: ALBUMIN 4.2 g/dL (3.5-5.0); ALKALINE PHOSPHATASE 120 U/L (38-126); ANION GAP 6 (5-19); ASPARTATE AMINO TRANSFERASE 22 U/L (14-36); BILIRUBIN,TOTAL 0.5 mg/dL (0.2-1.3); BLOOD UREA NITROGEN 13 mg/dL (7-20); CALCIUM 9.7 mg/dL (8.4-10.2); CARBON DIOXIDE 32 mmol/L (22-30); CHLORIDE 102 mmol/L (98-107); GLUCOSE 200 mg/dL (75-110); POTASSIUM 4.6 mmol/L (3.6-5.0); TOTAL PROTEIN 7.5 g/dL (6.3-8.2)
[2019-07-16 17:01] LABS: NT PRO BNP 74 pg/mL (<125)
[2019-07-16 17:02] LABS: TROPONIN I < 0.012 ng/mL
[2019-07-16] MEDS ORDERED: METHYLPREDNISOLONE INJ 125 MG/2 ML SDV IV ONE (17:12)
[2019-07-16] MEDS ORDERED: IPRATROPIUM/ALBUTEROL 0.5-2.5 MG/3 ML AMPUL NEB ONE (17:12)
[2019-07-16] MEDS ORDERED: FUROSEMIDE INJ/PF 20 MG/2 ML SDV IV ONE (17:12)
[2019-07-16 20:34] VITALS: BP 154/91
--- NOTE | 2019-07-16 23:38 | EKG REPORT ---
SEVERITY:- OTHERWISE NORMAL ECG - SINUS TACHYCARDIA : Confirmed by: Susan Mason 16-Jul-2019 23:37:58
== END 2019-07-16 21:00 | disposition home or self-care (01) ==
LOC: ER 13:32
DX: J45.901 Unspecified asthma with (acute) exacerbation (principal); R06.02 Shortness of breath; I50.9 Heart failure, unspecified; I11.0 Hypertensive heart disease with heart failure; E11.9 Type 2 diabetes mellitus without complications; Z90.49 Acquired absence of other specified parts of digestive tract; Z79.899 Other long term (current) drug therapy; Z79.84 Long term (current) use of oral hypoglycemic drugs
CPT/HCPCS: 93005; 94640; 99285; 96375; 96365; 96366; 36415; 87040; 83605; 85025; 85610; 80053; 81001; 84484; 82803; 83880; 71045; 93010; J1940; J2930; J3490; J7620

== ENCOUNTER → 2019-12-16 | Outpatient (CLI) | payer BC ==
--- NOTE | 2019-12-16 14:17 | WOMENS IMAGING REPORT ---
EXAM DESCRIPTION: DREW MARQUEZ 3D BILAT SCREEN IMAGES COMPLETED DATE/TIME: 12/16/2019 2:02 pm REASON FOR STUDY: Z12.31 ENCOUNTER FOR SCREENING MAMMOGRAM FOR MALIGNANT NEOPLASM OF BREAST Z12.31 ENCNTR SCREEN MAMMOGRAM FOR MALIGNANT NEOPLASM OF VICKIE COMPARISON: Baseline study EXAM PARAMETERS: Views: Standard craniocaudal and mediolateral oblique views of each breast recorded using digital acquisition and breast tomosynthesis. Read with the assistance of CAD. .[facility] - [employer] Scientist Version 9.2 LIMITATIONS: None. FINDINGS: No suspicious masses, suspicious calcifications or architectural distortion. No areas of c oncern. IMPRESSION: NEGATIVE MAMMOGRAM. BIRADS 1. BREAST DENSITY: a. The breasts are almost entirely fatty. BIRAD: ASSESSMENT: 1 NEGATIVE RECOMMENDATION: ROUTINE SCREENING Please continue yearly bilateral screening mammography/tomosynthesis in December 2020 COMMENT: The patient has been notified of the results by letter per MQSA requirements. Additional no tification policies are in place for contacting patient with suspicious or incomplete findings. Quality ID #[id number]: The [employer] recommends an annual screening mammogram for women aged 40 years or over. This facility utilizes a reminder system to ensure that all patients receive reminder letters, and/or direct phone calls for appointments. This includes reminders for routine scr eening mammograms, diagnostic mammograms, or other Breast Imaging Interventions when appropriate. Th is patient will be placed in the appropriate reminder system. TECHNICAL DOCUMENTATION: FINDING NUMBER: (1) ASSESSMENT: (1) JOB ID: [id number] 2010 [employer]- All Rights Reserved Reading location - IP/workstation name: [email or web address]
== END ==
LOC: WI 13:20
PROVIDERS: ATTEND Nurse Practitioner Family
DX: Z12.31 Encounter for screening mammogram for malignant neoplasm of breast (principal)
CPT/HCPCS: 77063